=== PATIENT | male | born 1975 | race Caucasian/White ===

== ENCOUNTER 2016-09-07 15:38 | Emergency (ER) | payer MEDICAID ==
--- NOTE | 2016-09-07 16:33 | EDM.PDOC ---
ED HPI GENERAL MEDICAL PROBLEM - General Chief Complaint: Upper Extremity Injury/Pain Stated Complaint: LEFT SHOULDER PAIN Time Seen by Provider: 09/07/16 16:10 Source of Information: Reports: Patient History Limitations: Reports: No Limitations - History of Present Illness INITIAL COMMENTS - FREE TEXT/NARRATIVE: The patient presents with left shoulder pain. He was working on his van and he reinjured his shoulder. He has a known tear in his shoulder and is scheduled to see an orthopedic surgeon next week. He has no numbness in his arm. He had an MRI recently that shows the tear. Duration: Minutes: Location: Reports: Upper Extremity, Left (Shoulder) Quality: Reports: Sharp Severity: Severe Improves with: Reports: None Worsens with: Reports: Movement Context: Reports: Activity (Working on his van) Associated Symptoms: Reports: No Other Symptoms Treatments MAINTENANCE CHIEF: Reports: Other (see below) Other Treatments MAINTENANCE CHIEF: tylenol Left Shoulder Pain Score (Numeric/FACES): 10 - Related Data Allergies Allergy/AdvReac Type Severity Reaction Status Date / Time amoxicillin Allergy Anaphylactic Verified 09/07/16 16:13 Shock aspirin Allergy Anaphylactic Verified 09/07/16 16:12 Shock ibuprofen [From Motrin] Allergy Hives Verified 09/07/16 16:12 ketorolac [From Toradol] Allergy Anaphylactic Verified 09/07/16 16:14 Shock naproxen [From Naprosyn] Allergy Anaphylactic Verified 09/07/16 16:12 Shock Sulfa (Sulfonamide Allergy Anaphylactic Verified 09/07/16 16:13 Antibiotics) Shock tramadol Allergy Hives Verified 09/07/16 16:14 Home Meds: Home Meds Gabapentin [Neurontin] 1,200 mg PO BID 09/07/16 [History] oxyCODONE HCl/Acetaminophen [Percocet 5-325 mg Tablet] 1 - 2 each PO Q6HR PRN # 20 tablet 09/07/16 [Rx] Past Medical History Respiratory History: Reports: Other (See Below) Other Respiratory History: seasonal allergies Musculoskeletal History: Reports: Other (See Below) Other Musculoskeletal History: has rotator cuff injury. Social & Family History - Tobacco Use Smoking Status *Q: Current Every Day Smoker Years of Tobacco use: 2 Packs/Tins Daily: 1 - Caffeine Use Caffeine Use: Reports: Soda - Recreational Drug Use Recreational Drug Use: No Review of Systems - Review of Systems Review Of Systems: See Below Constitutional: Reports: No Symptoms Eyes: Reports: No Symptoms Ears: Reports: No Symptoms Nose: Reports: No Symptoms Mouth/Throat: Reports: No Symptoms Respiratory: Reports: No Symptoms Cardiovascular: Reports: No Symptoms GI/Abdominal: Reports: No Symptoms Genitourinary: Reports: No Symptoms Musculoskeletal: Reports: Other (Left shoulder pain) ED EXAM, GENERAL - Physical Exam Exam: See Below Exam Limited By: No Limitations General Appearance: Alert, No Apparent Distress Ears: Normal External Exam Nose: Normal Inspection Head: Atraumatic, Normocephalic Neck: Normal Inspection Respiratory/Chest: No Respiratory Distress Extremities: Other (Pain upon palpation to the left anterior shoulder. Good sensation and pulses distally. Motion limited due to pain.) Course - Vital Signs Last Recorded V/S: Last Vital Signs Temp 98.5 F 09/07/16 16:20 Pulse 79 09/07/16 16:20 Resp 20 09/07/16 16:20 BP 115/79 09/07/16 16:20 Pulse Ox 97 09/07/16 16:20 Departure - Departure Time of Disposition: 16:35 Disposition: Home, Self-Care 01 Condition: Good Clinical Impression: Traumatic partial tear of left biceps tendon Qualifiers: Encounter type: initial encounter Qualified Code(s): S46.212A - Strain of muscle, fascia and tendon of other parts of biceps, left arm, initial encounter Tear of left glenoid labrum Qualifiers: Encounter type: initial encounter Qualified Code(s): S43.432A - Superior glenoid labrum lesion of left shoulder, initial encounter - Discharge Information Prescriptions: oxyCODONE HCl/Acetaminophen [Percocet 5-325 mg Tablet] 1 - 2 each PO Q6HR PRN # 20 tablet PRN Reason: Pain Referrals: Jasmeet Posada MD [Physician] - 1 Week Forms: ED Department Discharge Additional Instructions: Take the percocet as needed for pain. Ice your shoulder for 15 minutes every other hour while awake for 2 days. Please return if you are worse. Follow up with Dr Posada as scheduled.
== END 2016-09-07 16:47 | disposition home or self-care (01) ==
LOC: JD.ED 15:38
CPT/HCPCS: 99283

== ENCOUNTER 2016-09-30 15:23 | Emergency (ER) | payer MEDICAID ==
[2016-09-30 15:46] VITALS: BP 127/83
--- NOTE | 2016-09-30 16:25 | EDM.PDOC ---
ED HPI GENERAL MEDICAL PROBLEM - General Chief Complaint: Back Pain or Injury Stated Complaint: BACK INJURY Time Seen by Provider: 09/30/16 16:00 Source of Information: Reports: Patient History Limitations: Reports: No Limitations - History of Present Illness INITIAL COMMENTS - FREE TEXT/NARRATIVE: The patient presents with left shoulder pain and low back pain. He was helping lift a couch and bed on a truck at the [facility]. He has shoulder problems. He is seeing a orthopedic surgeon for his shoulder. He has no numbness or weakness. Onset: Sudden Duration: Hour(s): Location: Reports: Back, Upper Extremity, Left (Shoulder) Quality: Reports: Sharp Severity: Moderate Improves with: Reports: None Worsens with: Reports: None Associated Symptoms: Reports: No Other Symptoms Left Shoulder Pain Score (Numeric/FACES): 10 - Related Data Allergies Allergy/AdvReac Type Severity Reaction Status Date / Time amoxicillin Allergy Anaphylactic Verified 09/30/16 15:46 Shock aspirin Allergy Anaphylactic Verified 09/30/16 15:46 Shock ibuprofen [From Motrin] Allergy Hives Verified 09/30/16 15:46 ketorolac [From Toradol] Allergy Anaphylactic Verified 09/30/16 15:46 Shock naproxen [From Naprosyn] Allergy Anaphylactic Verified 09/30/16 15:46 Shock Sulfa (Sulfonamide Allergy Anaphylactic Verified 09/30/16 15:46 Antibiotics) Shock tramadol Allergy Hives Verified 09/30/16 15:46 Home Meds: Home Meds oxyCODONE HCl/Acetaminophen [Percocet 5-325 mg Tablet] 1 - 2 each PO Q6HR PRN # 20 tablet 09/30/16 [Rx] Past Medical History Respiratory History: Reports: Other (See Below) Other Respiratory History: seasonal allergies. respiratory arrest after amoxicillin Musculoskeletal History: Reports: Other (See Below) Other Musculoskeletal History: has rotator cuff injury. Social & Family History - Tobacco Use Smoking Status *Q: Current Every Day Smoker Years of Tobacco use: 20 Packs/Tins Daily: 1 - Caffeine Use Caffeine Use: Reports: Soda - Recreational Drug Use Recreational Drug Use: No ED ROS GENERAL - Review of Systems Review Of Systems: See Below Constitutional: Reports: No Symptoms HEENT: Reports: No Symptoms Respiratory: Reports: No Symptoms Cardiovascular: Reports: No Symptoms Endocrine: Reports: No Symptoms GI/Abdominal: Reports: No Symptoms : Reports: No Symptoms Musculoskeletal: Reports: Shoulder Pain (Left), Back Pain ED EXAM,LOWER BACK PAIN/INJURY - Physical Exam Exam: See Below Exam Limited By: No Limitations General Appearance: Alert, No Apparent Distress Ears: Normal External Exam Nose: Normal Inspection Head: Atraumatic, Normocephalic Neck: Normal Inspection Respiratory/Chest: No Respiratory Distress, Lungs Clear, Normal Breath Sounds Cardiovascular: Regular Rate, Rhythm, No Edema, No Murmur GI/Abdominal: Soft, Non-Tender, No Organomegaly, No Mass Back Exam: Other (Pain upon palpation to the lumbar spine) Extremities: Other (Pain upon palpation to the left shoulder) Course - Vital Signs Last Recorded V/S: Last Vital Signs Temp 98.5 F 09/30/16 15:42 Pulse 84 09/30/16 15:42 Resp 16 09/30/16 15:42 BP 127/83 09/30/16 15:42 Pulse Ox 96 09/30/16 15:42 Departure - Departure Time of Disposition: 16:25 Disposition: Home, Self-Care 01 Condition: Good Clinical Impression: Shoulder pain, left Qualifiers: Chronicity: acute Qualified Code(s): M25.512 - Pain in left shoulder Low back pain Qualifiers: Chronicity: acute Back pain laterality: left Sciatica presence: without sciatica Qualified Code(s): M54.5 - Low back pain - Discharge Information Prescriptions: oxyCODONE HCl/Acetaminophen [Percocet 5-325 mg Tablet] 1 - 2 each PO Q6HR PRN # 20 tablet PRN Reason: Pain Referrals: Samantha Sewell PA-C [[facility]] - 1 Week Forms: ED Department Discharge Additional Instructions: Take the percocet for pain. Please return if you are worse.
== END 2016-09-30 16:48 | disposition home or self-care (01) ==
LOC: JD.ED 15:23
DX: M25.512 Pain in left shoulder (principal); M54.5 Low back pain; F17.210 Nicotine dependence, cigarettes, uncomplicated; Z88.1 Allergy status to other antibiotic agents; Z88.2 Allergy status to sulfonamides; Z88.5 Allergy status to narcotic agent; Z88.6 Allergy status to analgesic agent; Z88.8 Allergy status to other drugs, medicaments and biological substances; X50.0XXA Overexertion from strenuous movement or load, initial encounter
CPT/HCPCS: 99283

== ENCOUNTER 2016-10-16 12:21 | Emergency (ER) | payer MEDICAID ==
[2016-10-16 12:44] VITALS: BP 133/92
--- NOTE | 2016-10-16 16:05 | EDM.PDOC ---
ED HPI GENERAL MEDICAL PROBLEM - General Chief Complaint: Back Pain or Injury Stated Complaint: BACK INJURY Time Seen by Provider: 10/16/16 12:50 Source of Information: Reports: Patient, Old Records History Limitations: Reports: No Limitations - History of Present Illness INITIAL COMMENTS - FREE TEXT/NARRATIVE: 41-year-old male presents for evaluation and treatment of mid back pain. Patient reports that he was working on an engine around 0100 this morning. He states that the engine was on a shelbie. He states that the shelbie slipped in the engine slipped. States he had to catch the motor. This reports this caused significant back pain. Reports that he did not fall or have any direct blows to his back. He states that he also "tweaked his shoulder " and he had a twisting motion his back causing back pain. He states that he tried Tylenol and a muscle relaxer. He is on Soma. He also has been taking his gabapentin which he is on for chronic knee pain. States that he tried to sleep but he was unable to do so. Patient has a left labral tear and biceps tendon tear to the left shoulder. He reports he has been seeing Dr. Posada for this. He may need a surgery but does not have insurance. Middle Back Pain Score (Numeric/FACES): 10 - Related Data Allergies Allergy/AdvReac Type Severity Reaction Status Date / Time amoxicillin Allergy Anaphylactic Verified 10/16/16 12:45 Shock aspirin Allergy Anaphylactic Verified 10/16/16 12:45 Shock ibuprofen [From Motrin] Allergy Hives Verified 10/16/16 12:45 ketorolac [From Toradol] Allergy Anaphylactic Verified 10/16/16 12:45 Shock naproxen [From Naprosyn] Allergy Anaphylactic Verified 10/16/16 12:45 Shock Sulfa (Sulfonamide Allergy Anaphylactic Verified 10/16/16 12:45 Antibiotics) Shock tramadol Allergy Hives Verified 10/16/16 12:45 Home Meds: Home Meds Acetaminophen [Tylenol] 1 - 2 tab PO ASDIRECTED PRN 10/16/16 [History] Gabapentin [Neurontin] 1,200 mg PO TID 10/16/16 [History] Omeprazole 1 tab PO DAILY 10/16/16 [History] Past Medical History Respiratory History: Reports: Other (See Below) Other Respiratory History: seasonal allergies. respiratory arrest after amoxicillin Musculoskeletal History: Reports: Other (See Below) Other Musculoskeletal History: has rotator cuff injury. Social & Family History - Tobacco Use Smoking Status *Q: Current Every Day Smoker Years of Tobacco use: 8 Packs/Tins Daily: 1 - Caffeine Use Caffeine Use: Reports: Soda - Recreational Drug Use Recreational Drug Use: No ED ROS GENERAL - Review of Systems Review Of Systems: See Below Musculoskeletal: Reports: Arm Pain (left shoulder), Back Pain. Denies: Neck Pain Skin: Denies: Pruritis, Wound Neurological: Reports: Difficulty Walking. Denies: Numbness, Tingling ED EXAM,LOWER BACK PAIN/INJURY - Physical Exam Exam: See Below Exam Limited By: No Limitations General Appearance: Alert, WD/WN, No Apparent Distress, Other (amanda is cruled up in the position with his back towards me during my history) Ears: Normal External Exam Nose: Normal Inspection Throat/Mouth: Normal Inspection, Normal Lips, Normal Voice, No Airway Compromise Respiratory/Chest: No Respiratory Distress, Lungs Clear, Normal Breath Sounds Cardiovascular: Normal Peripheral Pulses, Regular Rate, Rhythm, No Murmur Back Exam: Normal Inspection, Paraspinal Tenderness (bilteral T5-L1; exaggerated reponse to palpation), Vertebral Tenderness (T5-L1; exaggerated reponse to palpation), Other (refuses to stand up stright due to pain but allows me to lower the bed flat during examination; able to forward flex to 90 degrees, unable to extend, able to rotate both directions but reports pain, able to laterally flex in both directs but reports pain). No: Muscle Spasm Extremities: Normal Inspection Neurological: Alert, Normal Mood/Affect, Normal Dorsiflexion, Normal Plantar Flexion, Normal Gait (appreciated later while walking around the ER; during examination refused to straighten). No: Straight Leg Raise (L), Straight Leg Raise (R) Psychiatric: Normal Affect, Normal Mood Skin Exam: Warm, Dry, Normal Color Course - Vital Signs Last Recorded V/S: Last Vital Signs Temp 36.1 C 10/16/16 12:39 Pulse 80 10/16/16 12:39 Resp 16 10/16/16 12:39 BP 133/92 H 10/16/16 12:39 Pulse Ox 97 10/16/16 12:39 - Re-Assessments/Exams Free Text/Narrative Re-Assessment/Exam: 08/30/17 13:15 The patient's physical exam is inconsistent with his reported injury. He reports significant pain to gentle touch of his back and shoulder. I feel he is exaggerating his symptoms. No muscle spasms, bruising, swelling or wounds appreciated on exam. Patient searched on the [place] prescription drug registry. Patient has received 11 prescriptions for controlled substances since August 22, 2016. These were from 7 different prescribers. When I interviewed the patient , I asked who was prescribed gabapentin and Soma he is reportedly on. Reports that these are from providers in [place]. Of note the patient lived in [place], [place]. He does not see practitioners in [place] because they "don't know what they're doing ". I augmented the searched including these 2 states. Within the last year he has received 28 prescriptions from 14 different prescribers for controlled substances. I am very suspicious for drug seeking behavior. 10/16/16 14:18 After I examined the patient I informed him I would review his MRI results come up with the treatment plan. Unfortunately, due to the ER being busy at the time I was unable to go back to the room right away. He eloped around 1350 without signing AMA paperwork. 10/16/16 14:45 Clinic called. They stated that the patient's was over the clinic today asking for gabapentin and tramadol. The patient was with her. This was prior to arrival in the ER. Of note they did observe the patient walking without difficulty and was in no obvious discomfort at that time. Departure - Departure Time of Disposition: 14:20 Disposition: Eloped 07 Condition: Fair Clinical Impression: Drug-seeking behavior Low back pain Qualifiers: Chronicity: acute Back pain laterality: left Sciatica presence: without sciatica Qualified Code(s): M54.5 - Low back pain Shoulder pain, left Qualifiers: Chronicity: acute Qualified Code(s): M25.512 - Pain in left shoulder - Discharge Information Referrals: PCP,None [Primary Care Provider] - Jasmeet Posada MD [Physician] - Gilbert Cunningham MD [Physician] - Forms: ED Department Discharge Additional Instructions: Patient eloped prior to discharge instructions.
== END 2016-10-16 13:47 | disposition left against medical advice (07) ==
LOC: JD.ED 12:21
DX: M54.5 Low back pain (principal); M25.512 Pain in left shoulder; Z76.5 Malingerer [conscious simulation]; Z88.1 Allergy status to other antibiotic agents; Z88.6 Allergy status to analgesic agent; Z88.2 Allergy status to sulfonamides; Z88.8 Allergy status to other drugs, medicaments and biological substances; Z88.5 Allergy status to narcotic agent; Z79.899 Other long term (current) drug therapy
CPT/HCPCS: 99283

== ENCOUNTER 2016-11-18 07:52 | Emergency (ER) | payer BC, MEDICAID ==
[2016-11-18 08:03] VITALS: BP 120/83
[2016-11-18] MEDS ORDERED: Acetaminophen/oxyCODONE 325-5 MG Tab PO ONE (08:22)
--- NOTE | 2016-11-18 08:25 | EDM.PDOC ---
ED HPI GENERAL MEDICAL PROBLEM - General Chief Complaint: Upper Extremity Injury/Pain Stated Complaint: SHOULDER PAIN Time Seen by Provider: 11/18/16 08:10 Source of Information: Reports: Patient, RN Notes Reviewed - History of Present Illness INITIAL COMMENTS - FREE TEXT/NARRATIVE: 5-year-old male comes in with bilateral elbow pain, upper mid back pain. He states he has been working on the [employer] for the past 14 days, 12 hour shifts. Become more sore over the last few days.'s night he started having mid back pain that continues this morning. Very difficult to sleep secondary to the pain. He has had difficulty with his back in the past and also has had difficulty with his elbows, what he describes as tennis elbow type problems in the past. No particular fall. Chest pain or difficulty breathing. Upper Back Pain Score (Numeric/FACES): 8 - Related Data Allergies Allergy/AdvReac Type Severity Reaction Status Date / Time amoxicillin Allergy Anaphylactic Verified 11/18/16 08:00 Shock aspirin Allergy Anaphylactic Verified 11/18/16 08:00 Shock ibuprofen [From Motrin] Allergy Hives Verified 11/18/16 08:00 ketorolac [From Toradol] Allergy Anaphylactic Verified 11/18/16 08:00 Shock naproxen [From Naprosyn] Allergy Anaphylactic Verified 11/18/16 08:00 Shock Sulfa (Sulfonamide Allergy Anaphylactic Verified 11/18/16 08:00 Antibiotics) Shock tramadol Allergy Hives Verified 11/18/16 08:00 Home Meds: Home Meds Gabapentin [Neurontin] 1,200 mg PO TID 10/16/16 [History] Acetaminophen/oxyCODONE [Percocet 325-5 MG] 1 tab PO Q6H PRN #14 tablet [Rx] Past Medical History - Past Health History Medical/Surgical History: Denies Medical/Surgical History Respiratory History: Reports: Other (See Below) Other Respiratory History: seasonal allergies. respiratory arrest after amoxicillin Musculoskeletal History: Reports: Other (See Below) Other Musculoskeletal History: has rotator cuff injury. Social & Family History - Tobacco Use Smoking Status *Q: Current Every Day Smoker Years of Tobacco use: 20 Packs/Tins Daily: 1 - Caffeine Use Caffeine Use: Reports: Soda - Recreational Drug Use Recreational Drug Use: No Review of Systems - Review of Systems Review Of Systems: See Below Constitutional: Reports: No Symptoms Mouth/Throat: Reports: No Symptoms Respiratory: Denies: Shortness of Breath, Pleuritic Chest Pain Cardiovascular: Denies: Chest Pain GI/Abdominal: Denies: Abdominal Pain, Nausea, Vomiting Musculoskeletal: Reports: Back Pain (upper mid back without radiation), Joint Pain (bilateral elbow, worse with motion) Skin: Reports: No Symptoms ED EXAM, GENERAL - Physical Exam Exam: See Below General Appearance: Alert, Moderate Distress Throat/Mouth: Normal Inspection Head: Atraumatic. No: Facial Swelling Neck: Supple Respiratory/Chest: No Respiratory Distress, Lungs Clear, Normal Breath Sounds Cardiovascular: Regular Rate, Rhythm GI/Abdominal: Non-Tender Back Exam: Paraspinal Tenderness (upper mid back), Other (no bruising or swelling visible no warmth or erythema) Extremities: Other (he is tenderness of both elbows especially over the lateral aspect, no joint swelling warmth or erythema, decent range of motion with some discomfort). No: Joint Swelling Neurological: Alert, Oriented, No Motor/Sensory Deficits Skin Exam: Warm, Dry, Normal Color Course - Vital Signs Last Recorded V/S: Last Vital Signs Temp 98.2 F 11/18/16 08:00 Pulse 89 11/18/16 08:00 Resp 18 11/18/16 08:00 BP 120/83 11/18/16 08:00 Pulse Ox 96 11/18/16 08:00 - Orders/Labs/Meds Meds: Medications Discontinued Medications Generic Name Dose Route Start Last Admin Trade Name Cristopher PRN Reason Stop Dose Admin Oxycodone/Acetaminophen 1 tab 11/18/16 08:22 11/18/16 08:31 Percocet 325-5 Mg PO 11/18/16 08:23 1 tab ONETIME ONE Administration - Re-Assessments/Exams Free Text/Narrative Re-Assessment/Exam: 11/18/16 08:30 patient states he has prednisone so therefore he will use what he has 40 mg every morning for 3 days, then 20 mg every morning for 2 days, discharge instructions as documented Departure - Departure Time of Disposition: 08:22 Disposition: Home, Self-Care 01 Condition: Fair Clinical Impression: Elbow pain, left, Elbow pain, right Back pain Qualifiers: Back pain location: thoracic back pain Chronicity: acute Back pain laterality: midline Qualified Code(s): M54.6 - Pain in thoracic spine - Discharge Information Prescriptions: Acetaminophen/oxyCODONE [Percocet 325-5 MG] 1 tab PO Q6H PRN #14 tablet PRN Reason: Pain Instructions: Back Pain, Adult Referrals: PCP,Not In Area [Primary Care Provider] - Forms: ED Department Discharge Additional Instructions: rest back and arms, no heavy lifting, and his own 40 mg every morning for 3 days , then 20 mg every morning for 2 days, Percocet every 6-8 hours if needed for severe pain, when the pain becomes less severe cut them in half and take one half tablet along with a 500 mg Tylenol, do not drive or work when taking Percocet, follow-up with your regular medical provider if not much better within 3-5 days as expected, return to ED as needed.
== END 2016-11-18 09:06 | disposition home or self-care (01) ==
LOC: JD.ED 07:52
DX: M25.521 Pain in right elbow (principal); M25.522 Pain in left elbow; M54.6 Pain in thoracic spine; F17.210 Nicotine dependence, cigarettes, uncomplicated; Z88.1 Allergy status to other antibiotic agents; Z88.6 Allergy status to analgesic agent; Z88.5 Allergy status to narcotic agent; Z88.2 Allergy status to sulfonamides
CPT/HCPCS: 99283; A9270

== ENCOUNTER 2016-11-24 12:40 | Emergency (ER) | payer MEDICAID ==
[2016-11-24 12:57] VITALS: BP 136/95
[2016-11-24] MEDS ORDERED: Acetaminophen 325 MG Tab PO ONE (13:26)
--- NOTE | 2016-11-24 13:36 | EDM.PDOC ---
ED HPI GENERAL MEDICAL PROBLEM - General Chief Complaint: Back Pain or Injury Stated Complaint: BACK PAIN Time Seen by Provider: 11/24/16 13:26 Source of Information: Reports: Patient History Limitations: Reports: No Limitations - History of Present Illness INITIAL COMMENTS - FREE TEXT/NARRATIVE: 41-year-old male presents for evaluation and treatment of lower back pain. Patient reports about one hour prior to arrival in the ER he was working underneath a car. He states that a friend knocked the car causing to fall off the shelbie. He states he rolled out from underneath the car. Reports that the car did not fall on him. He was able to get out before the car came off the shelbie. He is currently complaining of lower back pain. Reports radiation into the right leg. Reports he twisted his back as he rolled out from underneath the car. He reports "a little bit "of numbness and tingling into the right leg and knee. No saddle anesthesia, urinary incontinence or stool incontinence. Patient reports that when he was 10 years old he injured his right knee. Does not sound like he broke the knee but reports pain with the knee since the injury. Review of the patient's record show he was been seen in the ER on several different occasions for back pain. I asked if he has chronic back problems. He reports that he does not. He states that he has had x-rays of his back but never any imaging such as MRI. No primary care provider. Location: Reports: Back Treatments WATCH ENGINEER: Reports: Acetaminophen Lower Back Pain Score (Numeric/FACES): 10 - Related Data Allergies Allergy/AdvReac Type Severity Reaction Status Date / Time amoxicillin Allergy Anaphylactic Verified 11/24/16 12:53 Shock aspirin Allergy Anaphylactic Verified 11/24/16 12:53 Shock ibuprofen [From Motrin] Allergy Hives Verified 11/24/16 12:53 ketorolac [From Toradol] Allergy Anaphylactic Verified 11/24/16 12:53 Shock naproxen [From Naprosyn] Allergy Anaphylactic Verified 11/24/16 12:53 Shock Sulfa (Sulfonamide Allergy Anaphylactic Verified 11/24/16 12:53 Antibiotics) Shock tramadol Allergy Hives Verified 11/24/16 12:53 Home Meds: Home Meds Gabapentin [Neurontin] 1,200 mg PO TID 10/16/16 [History] Acetaminophen/oxyCODONE [Percocet 325-5 MG] 1 tab PO Q6H PRN #14 tablet [Rx] Past Medical History - Past Health History Medical/Surgical History: Denies Medical/Surgical History Respiratory History: Reports: Other (See Below) Other Respiratory History: seasonal allergies. respiratory arrest after amoxicillin Musculoskeletal History: Reports: Other (See Below) Other Musculoskeletal History: has rotator cuff injury. Social & Family History - Tobacco Use Smoking Status *Q: Current Every Day Smoker Years of Tobacco use: 20 Packs/Tins Daily: 1 - Caffeine Use Caffeine Use: Reports: Soda - Recreational Drug Use Recreational Drug Use: No ED ROS GENERAL - Review of Systems Review Of Systems: See Below GI/Abdominal: Denies: Stool Incontinence : Denies: Incontinence Musculoskeletal: Reports: Back Pain (low back right > left). Denies: Neck Pain Skin: Denies: Bruising, Wound Neurological: Reports: Numbness ("little bit" ) ED EXAM,LOWER BACK PAIN/INJURY - Physical Exam Exam: See Below Exam Limited By: No Limitations General Appearance: Alert, WD/WN, No Apparent Distress Respiratory/Chest: No Respiratory Distress, Lungs Clear, Normal Breath Sounds Cardiovascular: Normal Peripheral Pulses, Regular Rate, Rhythm, No Murmur GI/Abdominal: No Distention Back Exam: Normal Inspection, Paraspinal Tenderness, Vertebral Tenderness ( lumbar spine; exhibits severe pain to light palpation of the lumbar spine and paraspinal muscles) Extremities: Normal Inspection, Other (reports pain to the right lower back with straight leg raise to the right; none to the left) Neurological: Alert, Normal Dorsiflexion, Normal Plantar Flexion, Normal Gait Psychiatric: Normal Affect, Normal Mood Skin Exam: Warm, Dry, Normal Color. No: Ecchymosis, Erythema Course - Vital Signs Last Recorded V/S: Last Vital Signs Temp 36.2 C 11/24/16 12:53 Pulse 95 11/24/16 12:53 Resp BP 136/95 H 11/24/16 12:53 Pulse Ox 99 11/24/16 12:53 - Orders/Labs/Meds Orders: Active Orders 24 hr Category Date Time Status Lumbar Spine 2 or 3V [CR] Stat Exams 11/24/16 13:26 Ordered Meds: Medications Discontinued Medications Generic Name Dose Route Start Last Admin Trade Name Freq PRN Reason Stop Dose Admin Acetaminophen 975 mg 11/24/16 13:26 Tylenol PO 11/24/16 13:27 NOW ONE - Re-Assessments/Exams Free Text/Narrative Re-Assessment/Exam: 11/24/16 13:26 Patient exhibits significant pain to light palpation of his lumbar spine and paraspinal muscles. Given his mechanism of injury do not feel he has a veterbral fracture but given his exam with a significant amount of pain I cannot rule this out. I encouraged him to have an x-ray. He does not feel like he broke his back. I also informed him that given his mechanism of injury; it is unlikely that he has any vertebral fractures but based on his exam I cannot rule this out. Patient asked for medication for pain. The patient was searched on the narcotic prescription drug registry. This was augmented to include [place] and [place]. He has received 25 prescriptions for 15 different prescribers within the last year for controlled substances. Most recently received Percocet 5-325 on 11-18-16 # 14 and gabapentin 600 mg tabs #126 on 11/12/16. Patient has a documented history of drug-seeking behavior. I feel that he is exaggerating his symptoms, however, we will do an x- ray to rule out any vertebral fractures. I will give Tylenol for the pain. 11/24/16 13:42 Patient was upset with the order for 975 mg of Tylenol. He states these are taken a large amount Tylenol and his liver is "shot". Given his anaphylactic allergies to ibuprofen, Toradol and naproxen I'm unwilling to give him any narcotic pain medication at this time. The patient eloped without signing AMA paperwork prior to x-ray. I feel this the patient is likely drug seeking. His behavior in the ER today was strongly suggestive of drug seeking behavior. Departure - Departure Time of Disposition: 14:00 Disposition: Eloped 07 Condition: Undetermined Clinical Impression: Drug-seeking behavior Back pain Qualifiers: Back pain location: thoracic back pain Chronicity: acute Back pain laterality: midline Qualified Code(s): M54.6 - Pain in thoracic spine - Discharge Information Referrals: PCP,None [Primary Care Provider] - Forms: ED Department Discharge Additional Instructions: Behavior strongly suspicious for drug seeking behavior. - My Orders Last 24 Hours: My Active Orders 11/24/16 13:26 Lumbar Spine 2 or 3V [CR] Stat - Assessment/Plan Last 24 Hours: My Active Orders 11/24/16 13:26 Lumbar Spine 2 or 3V [CR] Stat
== END 2016-11-24 13:38 | disposition left against medical advice (07) ==
LOC: JD.ED 12:40
DX: M54.6 Pain in thoracic spine (principal); F17.210 Nicotine dependence, cigarettes, uncomplicated; Z88.1 Allergy status to other antibiotic agents; Z88.6 Allergy status to analgesic agent; Z88.5 Allergy status to narcotic agent; Z88.2 Allergy status to sulfonamides; Z76.5 Malingerer [conscious simulation]
CPT/HCPCS: 99283; A9270-GY

== ENCOUNTER 2016-12-06 14:00 | Emergency (ER) | payer BC, MEDICAID ==
[2016-12-06 14:06] VITALS: BP 125/82
--- NOTE | 2016-12-06 14:45 | EDM.PDOC ---
ED HPI GENERAL MEDICAL PROBLEM - General Chief Complaint: Upper Extremity Injury/Pain Stated Complaint: ELBOW PAIN Time Seen by Provider: 12/06/16 14:07 Source of Information: Reports: Patient, RN Notes Reviewed - History of Present Illness INITIAL COMMENTS - FREE TEXT/NARRATIVE: 41-year-old male comes in with left elbow pain. This started a few days ago. The pain is worse with motion, hand grasp and pronation does make the pain worse. He has had tennis elbow of the right elbow in the past and states this does feel similar. A lot of "shoveling a few days ago prior to onset of pain. He has been taking some Tylenol. He states anti-inflammatories give him "anaphylaxis". There has been no fall or blow to the forearm or elbow. Treatments VENEER STAPLER: Reports: Acetaminophen left elbow Pain Score (Numeric/FACES): 5 - Related Data Allergies Allergy/AdvReac Type Severity Reaction Status Date / Time amoxicillin Allergy Anaphylactic Verified 12/06/16 14:07 Shock aspirin Allergy Anaphylactic Verified 12/06/16 14:07 Shock ibuprofen [From Motrin] Allergy Hives Verified 12/06/16 14:07 ketorolac [From Toradol] Allergy Anaphylactic Verified 12/06/16 14:07 Shock naproxen [From Naprosyn] Allergy Anaphylactic Verified 12/06/16 14:07 Shock Sulfa (Sulfonamide Allergy Anaphylactic Verified 12/06/16 14:07 Antibiotics) Shock tramadol Allergy Hives Verified 12/06/16 14:07 Home Meds: Home Meds Gabapentin [Neurontin] 1,200 mg PO TID 10/16/16 [History] Acetaminophen/oxyCODONE [Percocet 325-5 MG] 1 tab PO Q6H PRN #14 tablet [Rx] Hydrocodone/Acetaminophen [[place] 5-325] 1 tab PO Q8HR PRN #10 tablet 12/06/16 [ Rx] Past Medical History - Past Health History Medical/Surgical History: Denies Medical/Surgical History Respiratory History: Reports: Other (See Below) Other Respiratory History: seasonal allergies. respiratory arrest after amoxicillin Musculoskeletal History: Reports: Back Pain, Chronic, Other (See Below) Other Musculoskeletal History: has rotator cuff injury. Social & Family History - Family History Family Medical History: Noncontributory - Tobacco Use Smoking Status *Q: Current Every Day Smoker Years of Tobacco use: 20 Packs/Tins Daily: 1 - Caffeine Use Caffeine Use: Reports: Coffee, Soda - Recreational Drug Use Recreational Drug Use: No Review of Systems - Review of Systems Review Of Systems: See Below Constitutional: Denies: Chills, Fever Mouth/Throat: Reports: No Symptoms Respiratory: Denies: Shortness of Breath Cardiovascular: Denies: Chest Pain GI/Abdominal: Denies: Nausea, Vomiting Musculoskeletal: Reports: Joint Pain (Right elbow) Skin: Reports: No Symptoms ED EXAM, GENERAL - Physical Exam Exam: See Below General Appearance: Alert, Mild Distress Head: Atraumatic Neck: Supple, Full Range of Motion Respiratory/Chest: No Respiratory Distress Extremities: Other (There is tenderness, point tenderness of the lateral epicondylar area of the right elbow, elbow otherwise nontender, forearm otherwise nontender). No: Joint Swelling, Redness Neurological: No Motor/Sensory Deficits Course - Vital Signs Last Recorded V/S: Last Vital Signs Temp 97.2 F 12/06/16 14:06 Pulse 84 12/06/16 14:06 Resp 18 12/06/16 14:06 BP 125/82 12/06/16 14:06 Pulse Ox 95 12/06/16 14:06 Departure - Departure Time of Disposition: 14:43 Disposition: Home, Self-Care 01 Condition: Fair Clinical Impression: Tennis elbow syndrome Qualifiers: Laterality: left Qualified Code(s): M77.12 - Lateral epicondylitis, left elbow - Discharge Information Prescriptions: Hydrocodone/Acetaminophen [[place] 5-325] 1 tab PO Q8HR PRN #10 tablet PRN Reason: Pain Instructions: Tennis Elbow, [id number] Referrals: PCP,None [Primary Care Provider] - Forms: ED Department Discharge Additional Instructions: elbow strap to help bind your forearm muscle to take pressure off of your elbow , rest elbow, alternate ice and heat as needed, tylenol for mild to moderate discomfort, hydrocodone if needed for severe pain, do not drive or operate equipment or machinery when taking hydrocodone. Follow up clinic as needed.
== END 2016-12-06 15:00 | disposition home or self-care (01) ==
LOC: JD.ED 14:00
DX: M77.12 Lateral epicondylitis, left elbow (principal); F17.210 Nicotine dependence, cigarettes, uncomplicated; Z88.1 Allergy status to other antibiotic agents; Z88.6 Allergy status to analgesic agent; Z88.5 Allergy status to narcotic agent; Z88.2 Allergy status to sulfonamides
CPT/HCPCS: 99283

== ENCOUNTER 2016-12-07 20:22 | Emergency (ER) | payer BC ==
[2016-12-07 20:36] VITALS: BP 126/82
[2016-12-07] MEDS ORDERED: Lidocaine 5% 700 MG Patch TOP ONE (20:57)
[2016-12-07] MEDS ORDERED: Acetaminophen 325 MG Tab PO ONE (20:57)
[2016-12-07] MEDS ORDERED: Ondansetron 4 MG Tab.DIS PO ONE (20:59)
--- NOTE | 2016-12-07 21:06 | EDM.PDOC ---
ED HPI GENERAL MEDICAL PROBLEM - General Chief Complaint: Back Pain or Injury Stated Complaint: BACK PAIN Time Seen by Provider: 12/07/16 20:45 Source of Information: Reports: Patient History Limitations: Reports: No Limitations - History of Present Illness INITIAL COMMENTS - FREE TEXT/NARRATIVE: 41-year-old male presents for evaluation treatment of low back pain. Patient reports that around 1630 today he was throwing hay bails. He states that from 3: 30 to 4:30 he was throwing hay bails, which weighed about 100 pounds. He states that he was twisting and throwing. He states that he picked up a wet hay bail which he estimated weighed about 250 pounds. He states that he felt a pop in his back and had to lay down immediately due to the pain. He is currently complaining of pain in the lower back. No numbness or tingling into the legs. No saddle anesthesia. No episodes of urinary or stool incontinence. He is reporting nausea due to the pain. States he has been taking Tylenol without any symptom relief prior to arrival in the ER. Treatments BOTTOM TURNER: Reports: Other (see below) Other Treatments BOTTOM TURNER: tylenol; hydrocodone not working Lower Back Pain Score (Numeric/FACES): 10 - Related Data Allergies Allergy/AdvReac Type Severity Reaction Status Date / Time amoxicillin Allergy Anaphylactic Verified 12/06/16 14:07 Shock aspirin Allergy Anaphylactic Verified 12/06/16 14:07 Shock ibuprofen [From Motrin] Allergy Hives Verified 12/06/16 14:07 ketorolac [From Toradol] Allergy Anaphylactic Verified 12/06/16 14:07 Shock naproxen [From Naprosyn] Allergy Anaphylactic Verified 12/06/16 14:07 Shock Sulfa (Sulfonamide Allergy Anaphylactic Verified 12/06/16 14:07 Antibiotics) Shock tramadol Allergy Hives Verified 12/06/16 14:07 Home Meds: Home Meds Gabapentin [Neurontin] 1,200 mg PO TID 10/16/16 [History] Acetaminophen/oxyCODONE [Percocet 325-5 MG] 1 tab PO Q6H PRN #14 tablet [Rx] Hydrocodone/Acetaminophen [[place] 5-325] 1 tab PO Q8HR PRN #10 tablet 12/06/16 [ Rx] Past Medical History - Past Health History Medical/Surgical History: Denies Medical/Surgical History Respiratory History: Reports: Other (See Below) Other Respiratory History: seasonal allergies. respiratory arrest after amoxicillin Musculoskeletal History: Reports: Back Pain, Chronic, Other (See Below) Other Musculoskeletal History: has rotator cuff injury. Social & Family History - Family History Family Medical History: Noncontributory - Tobacco Use Smoking Status *Q: Current Every Day Smoker Years of Tobacco use: 8 Packs/Tins Daily: 1.5 - Caffeine Use Caffeine Use: Reports: Coffee, Soda - Recreational Drug Use Recreational Drug Use: No ED ROS GENERAL - Review of Systems Review Of Systems: See Below GI/Abdominal: Reports: Nausea. Denies: Stool Incontinence, Vomiting : Denies: Incontinence Musculoskeletal: Reports: Back Pain (low back) Neurological: Reports: Difficulty Walking, Other (no saddle anesthesia). Denies : Numbness, Tingling ED EXAM,LOWER BACK PAIN/INJURY - Physical Exam Exam: See Below Exam Limited By: No Limitations General Appearance: Alert, WD/WN, No Apparent Distress Respiratory/Chest: No Respiratory Distress Back Exam: Normal Inspection, Vertebral Tenderness (reports severe tenderness to t8 to the sacrum with light palpation; I feel he is exaggerating his symptoms ), Other (patinet is laying on his stomach and refuses to lay on his back ) Neurological: Alert, Difficulty Walking (is walking hunched over holding his back) Skin Exam: Warm, Dry, Normal Color. No: Ecchymosis Course - Vital Signs Last Recorded V/S: Last Vital Signs Temp 37.1 C 12/07/16 20:31 Pulse 89 12/07/16 20:31 Resp 20 12/07/16 20:31 BP 126/82 12/07/16 20:31 Pulse Ox 95 12/07/16 20:31 - Orders/Labs/Meds Orders: Active Orders 24 hr Category Date Time Status Lumbar Spine 2 or 3V [CR] Stat Exams 12/07/16 20:55 Taken Thoracic Spine 2V [CR] Stat Exams 12/07/16 20:55 Taken Meds: Medications Discontinued Medications Generic Name Dose Route Start Last Admin Trade Name Freq PRN Reason Stop Dose Admin Acetaminophen 975 mg 12/07/16 20:57 12/07/16 21:10 Tylenol PO 12/07/16 20:58 Not Given NOW ONE Lidocaine 700 mg 12/07/16 20:57 12/07/16 21:10 Lidoderm 5% TOP 12/07/16 20:58 700 mg ONETIME ONE Administration Ondansetron HCl 4 mg 12/07/16 20:59 12/07/16 21:10 Zofran Odt PO 12/07/16 21:00 4 mg ONETIME ONE Administration Orphenadrine Citrate 100 mg 12/07/16 21:23 Norflex PO 12/07/16 21:24 NOW STA - Radiology Interpretation Free Text/Narrative:: lumbar spine xray shows no acute fractures of dislocations thoracic spine xray shows a fusion in the mid back from L1 to T6 - reports he had a fusion in [place] in 2003 and states the remainder of his back fused on its own. - Re-Assessments/Exams Free Text/Narrative Re-Assessment/Exam: 12/07/16 21:07 Patient was searched on the [place] prescription drug registry. He lives in [place] and recently relocated to [place] from [place]. The search was augmented to include these [facility] as well. He has received 35 prescriptions from 23 different prescribers within the last year for controlled substances. Most recently received hydrocodone 5-325#10 on 12-06-16. 12/07/16 21:31 Patient refuses tylenol. Has anaphylaxis reactions to NSAIDS. Requesting something more for pain. Norflex 100mg tab ordered for pain relief. 12/07/16 21:43 Patient refused the Norflex tab. He is demanding to speak with the doctor. Dr. Kang is aware. Patient has now eloped. He angrily stormed out of the ER saying that we are not treating his pain, however, he did refuse Tylenol and Norflex. He did not feel that the lidocaine patch adequately treated his pain. X-ray [employer] reported that he called her "stupid " For making him lay on his side. X-ray [employer] also inform me that he had told her he had a mid back fusion in 2003 in [place]. He failed to mention this to me. 12/07/16 22:04 Nursing staff went and found the patient. States that he was weak and almost fell. They brought him back in and had him lay down. I reviewed the x-ray results with the patient. I reviewed his drug registry with him and told him I will not be prescribing any more narcotics as he has gotten 4 narcotic prescriptions this month. He is requesting a shot for pain. I told him that what he has already received is what I would prescribe for him. I encouraged him to try the Tylenol and the Norflex first. He then tells me that he has been taking Tylenol and methylcarbinol at home. He also took 2 hydrocodone before he got here. I informed if he would like to see Dr. Kang I can have him come and see him, however, he is currently with another patient and it maybe a few minutes. logistics clerk came inform me that he has now eloped for the second time. Departure - Departure Time of Disposition: 22:20 Disposition: Eloped 07 Condition: Undetermined Clinical Impression: Drug-seeking behavior - Discharge Information Referrals: PCP,None [Primary Care Provider] - Forms: ED Department Discharge Additional Instructions: Plan was to prescribe norflex and have him use his narcotic pain medications he has at home. Plan was to set him up with PT and an outpatient MRI. Was also going to recommend heat to the back. Patient eloped prior to discharge. - My Orders Last 24 Hours: My Active Orders 12/07/16 20:55 Lumbar Spine 2 or 3V [CR] Stat Thoracic Spine 2V [CR] Stat - Assessment/Plan Last 24 Hours: My Active Orders 12/07/16 20:55 Lumbar Spine 2 or 3V [CR] Stat Thoracic Spine 2V [CR] Stat
[2016-12-07] MEDS ORDERED: Orphenadrine 100 MG Tab.ER PO STA (21:23)
--- NOTE | 2016-12-08 17:11 | CR ---
Lumbar spine: AP and lateral views of the lumbar spine were obtained. Comparison: No prior plain film exam, previous MRI lumbar spine exam of 12/09/12 is available. Disc space narrowing is noted at T11-T12 and T12-L1 with partial fusion seen anteriorly at T12-L1. These findings are felt to be developmental and are stable from prior MRI. Other disc spaces are maintained. Vertebral body heights are maintained. Pedicles as well as visualized transverse and spinous processes are intact. No subluxation or fracture is identified. Visualized bowel gas is normal. Sacroiliac joints appear within normal limits. Impression: 1. Findings felt to be developmental and appear stable from prior MRI at T11-T12 and T12-L1 as noted above. 2. Three-view lumbar spine study is otherwise unremarkable. Diagnostic code #2
--- NOTE | 2016-12-08 17:11 | CR ---
Thoracic spine: AP, lateral and swimmer's views of the thoracic spine were obtained. Comparison: No prior thoracic spine study. Anterior fusion is seen within multiple vertebral levels within the lower thoracic spine. Slight anterior wedging is noted of several lower thoracic vertebral bodies which appear chronic. Very minimal endplate osteophytes are seen within the mid thoracic spine. Pedicles appear intact. Mild scoliosis is noted. No abnormal subluxation is seen. Impression: 1. Anterior fusion within multiple lower thoracic vertebral levels with several chronic-appearing anterior wedge deformities. 2. Slight endplate spurring noted within the mid thoracic spine. 3. Minimal scoliosis. Diagnostic code #3
== END 2016-12-07 22:04 | disposition left against medical advice (07) ==
LOC: JD.ED 20:22
DX: M54.5 Low back pain (principal); Z76.5 Malingerer [conscious simulation]; F17.210 Nicotine dependence, cigarettes, uncomplicated; Z79.899 Other long term (current) drug therapy; Z88.5 Allergy status to narcotic agent; Z88.6 Allergy status to analgesic agent; Z88.2 Allergy status to sulfonamides; Z88.1 Allergy status to other antibiotic agents
CPT/HCPCS: 72070; 72100; 99284; A9270; 99283

== ENCOUNTER 2016-12-22 18:13 | Emergency (ER) | payer BC ==
[2016-12-22 18:32] VITALS: BP 140/91
--- NOTE | 2016-12-22 19:11 | EDM.PDOC ---
ED HPI GENERAL MEDICAL PROBLEM - General Chief Complaint: Back Pain or Injury Stated Complaint: LOWER BACK PAIN Time Seen by Provider: 12/22/16 19:05 Source of Information: Reports: Patient History Limitations: Reports: No Limitations - History of Present Illness INITIAL COMMENTS - FREE TEXT/NARRATIVE: 41-year-old male attends the ED because of increasing low back pain. Patient lives with chronic low back pain and mid back pain due to ankylosing spondylitis. The bones in his thoracic spine have diffuse spontaneously. 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 Pain is diffusely throughout his lower back. It radiates into the upper buttock and along the beltline but not much into the legs. He feels he is emptying his bladder adequately. He usually uses Percocet 7.5 mg/325 mg but does not have any pain medication. He has started himself on prednisone 20 mg twice a day yesterday. Is allergic to almost all NSAIDs. He has been tried on numerous anti- remittive agents without much relief. Just states he just needs help to get through the weekend and get some sleep. 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 (Something he can take it is not helping) Lower Back Pain Score (Numeric/FACES): 9 - Related Data Allergies Allergy/AdvReac Type Severity Reaction Status Date / Time amoxicillin Allergy Anaphylactic Verified 12/22/16 18:29 Shock aspirin Allergy Anaphylactic Verified 12/22/16 18:29 Shock ibuprofen [From Motrin] Allergy Hives Verified 12/22/16 18:29 ketorolac [From Toradol] Allergy Anaphylactic Verified 12/22/16 18:29 Shock naproxen [From Naprosyn] Allergy Anaphylactic Verified 12/22/16 18:29 Shock Sulfa (Sulfonamide Allergy Anaphylactic Verified 12/22/16 18:29 Antibiotics) Shock tramadol Allergy Hives Verified 12/22/16 18:29 Home Meds: Home Meds Gabapentin [Neurontin] 1,200 mg PO TID 10/16/16 [History] oxyCODONE HCl/Acetaminophen [Percocet 7.5-325 mg Tablet] 1 each PO Q4H PRN #20 tablet 12/22/16 [Rx] Past Medical History - Past Health History Medical/Surgical History: Denies Medical/Surgical History Respiratory History: Reports: Other (See Below) Other Respiratory History: seasonal allergies. respiratory arrest after amoxicillin Musculoskeletal History: Reports: Back Pain, Chronic, Other (See Below) Other Musculoskeletal History: has rotator cuff injury. Has ankylosing spondylitis. 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 - Past Surgical History Musculoskeletal Surgical History: Reports: Other (See Below) Other Musculoskeletal Surgeries/Procedures:: pt states that his mid back is fused Social & Family History - Family History Family Medical History: Noncontributory - Tobacco Use Smoking Status *Q: Current Every Day Smoker Years of Tobacco use: 5 Packs/Tins Daily: 2.5 Used Tobacco, but Quit: No - Caffeine Use Caffeine Use: Reports: Soda - Recreational Drug Use Recreational Drug Use: No - Living Situation & Occupation Living situation: Reports: Occupation: Employed ED ROS GENERAL - Review of Systems Review Of Systems: See Below Constitutional: Denies: Fever, Chills, Malaise, Weakness, Fatigue, Decreased Appetite, Weight Loss HEENT: Reports: No Symptoms Respiratory: Reports: No Symptoms Cardiovascular: Reports: No Symptoms Endocrine: Reports: No Symptoms GI/Abdominal: Reports: Constipation : Reports: No Symptoms (Occasional problems) Musculoskeletal: Reports: Back Pain Skin: Reports: No Symptoms (Chronic low back pain) Neurological: Reports: No Symptoms Psychiatric: Reports: No Symptoms Hematologic/Lymphatic: Reports: No Symptoms Immunologic: Reports: No Symptoms ED EXAM,LOWER BACK PAIN/INJURY - Physical Exam Exam: See Below Exam Limited By: No Limitations General Appearance: Alert, WD/WN, Moderate Distress (Appears to be quite uncomfortable.) Respiratory/Chest: No Respiratory Distress, Lungs Clear, Normal Breath Sounds, No Accessory Muscle Use, Chest Non-Tender Cardiovascular: Normal Peripheral Pulses, Regular Rate, Rhythm, No Edema, No Gallop, No Murmur, Tachycardia (Resting tachycardia at 10 8/m.) GI/Abdominal: Normal Bowel Sounds, Soft, Non-Tender, No Organomegaly, No Distention Back Exam: Muscle Spasm, Vertebral Tenderness (Minimal muscle spasm. Vertebral tenderness throughout all the facet joints from T11-L5 bilaterally. Worse in the right side particularly at the L1-L2 level.) Extremities: Normal Inspection, Normal Range of Motion, Non-Tender, No Pedal Edema, Normal Capillary Refill Neurological: Alert, Normal Mood/Affect, Normal Dorsiflexion, CN II-XII Intact, Normal Plantar Flexion, Normal Gait, Normal Reflexes, No Motor/Sensory Deficits , Oriented x 3 Course - Vital Signs Last Recorded V/S: Last Vital Signs Temp 37.1 C 12/22/16 18:30 Pulse 105 H 12/22/16 18:30 Resp 16 12/22/16 18:30 BP 140/91 H 12/22/16 18:30 Pulse Ox 98 12/22/16 18:30 - Orders/Labs/Meds Meds: Medications Discontinued Medications Generic Name Dose Route Start Last Admin Trade Name Freq PRN Reason Stop Dose Admin Oxycodone/Acetaminophen 2 tab 12/22/16 19:12 12/22/16 19:26 Percocet 325-5 Mg PO 12/22/16 19:13 2 tab ONETIME ONE Administration - Radiology Interpretation Free Text/Narrative:: 41-year-old male with chronic low back pain attends the ED primarily for pain management. Patient states she has ankylosing spondylitis and a bones in his mid back if spontaneously fused. Pain is been exacerbated by his work level over the last few days. States pain is constant throbbing and he has no pain medication at home. Usually uses 7.5 mg of Percocet 5/3/25 milligrams strength for pain relief but does not have any at this time. Started himself back on prednisone 20 mg twice a day yesterday. Examination shows point tenderness over the facet joints from T11-L5 bilaterally worse on the right as compared to the left. Plan given Percocet 5/3/25 milligrams tabs 2 through the ED. Prescription written for 20 tablets of Percocet 7.5/325 m for filling tomorrow. He will follow-up with his normal provider the next few days. Departure - Departure Time of Disposition: 19:12 Disposition: Home, Self-Care 01 Condition: Fair Clinical Impression: Ankylosing spondylitis of multiple sites in spine Low back pain Qualifiers: Chronicity: acute Back pain laterality: left Sciatica presence: without sciatica Qualified Code(s): M54.5 - Low back pain - Discharge Information Prescriptions: oxyCODONE HCl/Acetaminophen [Percocet 7.5-325 mg Tablet] 1 each PO Q4H PRN #20 tablet PRN Reason: back pain Instructions: Back Pain, Adult Referrals: PCP,None [Primary Care Provider] - Forms: ED Department Discharge Additional Instructions: Evaluation in the ER tonight in regards to acute exacerbation opf chronic low back pain. Chronic ankylosing spondylitis. Allergy to multiple NSAID`s. Currently on Prednisone 20mg bid. Use Percocet 5/325mg tabs x 2 tonight from the ED. Script written for Percocet 7.5/325mg tabs x20 for pain releif over the next few days until f0llow up with personal physcian. or pain managment physcian.
[2016-12-22] MEDS ORDERED: Acetaminophen/oxyCODONE 325-5 MG Tab PO ONE (19:12)
== END 2016-12-22 19:30 | disposition home or self-care (01) ==
LOC: JD.ED 18:13
DX: M45.0 Ankylosing spondylitis of multiple sites in spine (principal); F17.210 Nicotine dependence, cigarettes, uncomplicated; Z88.1 Allergy status to other antibiotic agents; Z88.6 Allergy status to analgesic agent; Z88.2 Allergy status to sulfonamides; Z88.5 Allergy status to narcotic agent; Z79.899 Other long term (current) drug therapy
CPT/HCPCS: 99283; A9270

== ENCOUNTER 2017-03-29 17:48 | Emergency (ER) | payer BC, MEDICAID ==
[2017-03-29 17:58] VITALS: BP 117/67
[2017-03-29] MEDS ORDERED: Acetaminophen/oxyCODONE 325-5 MG Tab PO ONE (18:32)
--- NOTE | 2017-03-29 19:11 | EDM.PDOC ---
ED HPI GENERAL MEDICAL PROBLEM - General Chief Complaint: Back Pain or Injury Stated Complaint: FELL ON TAILBONE AND BACK PAIN Time Seen by Provider: 03/29/17 18:10 Source of Information: Reports: Patient, RN Notes Reviewed - History of Present Illness INITIAL COMMENTS - FREE TEXT/NARRATIVE: 42-year-old male comes in with low back and tailbone discomfort. He states that he slept reading some furniture into his home a couple of hours ago landing on his tailbone. He states he does have severe pain of the tailbone and low back worse with any kind of motion. He does have some mild neck discomfort. He denies headache, LOC or severe head injury. The pain does not radiate down his legs. No chest pain or difficulty breathing. Back Pain Score (Numeric/FACES): 9 - Related Data Allergies Allergy/AdvReac Type Severity Reaction Status Date / Time amoxicillin Allergy Anaphylactic Verified 03/29/17 17:58 Shock aspirin Allergy Anaphylactic Verified 03/29/17 17:58 Shock ibuprofen [From Motrin] Allergy Hives Verified 03/29/17 17:58 ketorolac [From Toradol] Allergy Anaphylactic Verified 03/29/17 17:58 Shock naproxen [From Naprosyn] Allergy Anaphylactic Verified 03/29/17 17:58 Shock Sulfa (Sulfonamide Allergy Anaphylactic Verified 03/29/17 17:58 Antibiotics) Shock tramadol Allergy Hives Verified 03/29/17 17:58 Home Meds: Home Meds Gabapentin [Neurontin] 1,200 mg PO TID 10/16/16 [History] traMADol [Ultram] 50 mg PO Q6H PRN #14 tab 03/29/17 [Rx] Past Medical History - Past Health History Medical/Surgical History: Denies Medical/Surgical History Respiratory History: Reports: Other (See Below) Other Respiratory History: seasonal allergies. respiratory arrest after amoxicillin Musculoskeletal History: Reports: Back Pain, Chronic, Other (See Below) Other Musculoskeletal History: has rotator cuff injury. Has ankylosing spondylitis. 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 - Past Surgical History Musculoskeletal Surgical History: Reports: Other (See Below) Other Musculoskeletal Surgeries/Procedures:: pt states that his mid back is fused Social & Family History - Family History Family Medical History: Noncontributory - Tobacco Use Smoking Status *Q: Current Every Day Smoker Years of Tobacco use: 20 Packs/Tins Daily: 0.5 Used Tobacco, but Quit: No Second Hand Smoke Exposure: No - Caffeine Use Caffeine Use: Reports: Coffee - Recreational Drug Use Recreational Drug Use: No - Living Situation & Occupation Living situation: Reports: Occupation: Employed ED ROS GENERAL - Review of Systems Review Of Systems: See Below Constitutional: Reports: No Symptoms HEENT: Reports: No Symptoms Respiratory: Denies: Shortness of Breath, Pleuritic Chest Pain Cardiovascular: Denies: Chest Pain GI/Abdominal: Denies: Abdominal Pain, Nausea, Vomiting Musculoskeletal: Reports: Back Pain (Low back) Skin: Reports: No Symptoms Neurological: Denies: Dizziness, Headache, Numbness, Tingling ED EXAM,LOWER BACK PAIN/INJURY - Physical Exam Exam: See Below General Appearance: Alert, Moderate Distress Throat/Mouth: Normal Inspection Head: Atraumatic, Other (No visible scalp swelling or bruising). No: Facial Swelling Neck: Supple Respiratory/Chest: No Respiratory Distress, Lungs Clear Back Exam: Paraspinal Tenderness (Low mid back), Vertebral Tenderness (Low mid back), Other (No bruising or swelling visible, very tender over the tailbone area as well) Extremities: Normal Inspection, Normal Range of Motion, Other (Pelvis and hips nontender) Neurological: Alert, No Motor/Sensory Deficits Skin Exam: Warm, Dry, Normal Color Course - Vital Signs Last Recorded V/S: Last Vital Signs Temp 98.2 F 03/29/17 17:56 Pulse 87 03/29/17 17:56 Resp 18 03/29/17 17:56 BP 117/67 03/29/17 17:56 Pulse Ox 96 03/29/17 17:56 - Orders/Labs/Meds Orders: Active Orders 24 hr Category Date Time Status Lumbar Spine 2 or 3V [CR] Stat Exams 03/29/17 18:33 Taken Sacrum Coccyx Min 2V [CR] Stat Exams 03/29/17 18:33 Taken Meds: Medications Discontinued Medications Generic Name Dose Route Start Last Admin Trade Name Freq PRN Reason Stop Dose Admin Oxycodone/Acetaminophen 1 tab 03/29/17 18:32 03/29/17 18:40 Percocet 325-5 Mg PO 03/29/17 18:33 1 tab ONETIME ONE Administration - Re-Assessments/Exams Free Text/Narrative Re-Assessment/Exam: 03/29/17 19:28. Pt allergic to tramadol, NSAIDs per patient hx. I did check the [place] PDMP. He has had 23 prescriptions filled by 12 prescribers at 9 different pharmacies in the past year, worrisome. He has no fx. We did treat his pain with an oxycodone 5/325 after my exam. I have informed patient I am not comfortable prescribing any further narcotics for this injury. 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 He now tells me he is not allergic to tramadol, states tylenol is not giving him adequate relief from this injury. Will prescribe a limited # of tramado. Will provider a referal for Dr Cleary, pain management. Departure - Departure Time of Disposition: 19:45 Disposition: Home, Self-Care 01 Condition: Fair Clinical Impression: Contusion of coccyx Qualifiers: Encounter type: initial encounter Qualified Code(s): S30.0XXA - Contusion of lower back and pelvis, initial encounter Low back pain Qualifiers: Chronicity: acute Back pain laterality: left Sciatica presence: without sciatica Qualified Code(s): M54.5 - Low back pain - Discharge Information Prescriptions: traMADol [Ultram] 50 mg PO Q6H PRN #14 tab PRN Reason: Pain Referrals: PCP,None [Primary Care Provider] - Forms: ED Department Discharge Additional Instructions: tylenol 3 to 4 times daily, you may take tramadol in between doses for extra pain relief as needed. 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 - My Orders Last 24 Hours: My Active Orders 03/29/17 18:33 Lumbar Spine 2 or 3V [CR] Stat Sacrum Coccyx Min 2V [CR] Stat - Assessment/Plan Last 24 Hours: My Active Orders 03/29/17 18:33 Lumbar Spine 2 or 3V [CR] Stat Sacrum Coccyx Min 2V [CR] Stat
--- NOTE | 2017-03-30 12:24 | CR ---
Lumbar spine: AP and lateral views of the lumbar spine were obtained. Comparison: Prior lumbar spine study of 12/07/16. Evidence of anterior fusion is seen at T11-T12 and T12-L1. Disc spaces within the lumbar spine are preserved. Vertebral body heights are maintained. Minimal scattered endplate osteophytes are seen. Pedicles as well as transverse and spinous processes are intact. Sacroiliac joints are within normal limits. Impression: 1. Findings as noted above. No significant change from previous study is seen. Nothing acute is identified. Diagnostic code #2
--- NOTE | 2017-03-30 17:47 | CR ---
Sacrum and coccyx: Three views of the sacrum and coccyx were obtained. Comparison: No previous study. Sacroiliac joints are within normal limits. Sacral foramina appear to be patent. No discrete fracture or other bony abnormality is seen. Impression: 1. No abnormality is identified on three-view sacrum and coccyx study. Diagnostic code #1
== END 2017-03-29 20:10 | disposition home or self-care (01) ==
LOC: JD.ED 17:48
DX: S30.0XXA Contusion of lower back and pelvis, initial encounter (principal); F17.210 Nicotine dependence, cigarettes, uncomplicated; Z88.1 Allergy status to other antibiotic agents; Z88.6 Allergy status to analgesic agent; Z88.2 Allergy status to sulfonamides; Z88.5 Allergy status to narcotic agent; W17.89XA Other fall from one level to another, initial encounter; Y92.009 Unspecified place in unspecified non-institutional (private) residence as the place of occurrence of the external cause
CPT/HCPCS: 72100; 72220; 99283; A9270

== ENCOUNTER 2017-04-15 15:36 | Emergency (ER) | payer MEDICAID ==
--- NOTE | 2017-04-15 16:24 | EDM.PDOC ---
ED HPI GENERAL MEDICAL PROBLEM - General Chief Complaint: Upper Extremity Injury/Pain Stated Complaint: LEFT SHOULDER INJURY Time Seen by Provider: 04/15/17 15:51 Source of Information: Reports: Patient History Limitations: Reports: No Limitations - History of Present Illness INITIAL COMMENTS - FREE TEXT/NARRATIVE: The patient slipped on the ice running after his daughter and he fell and landed on his right shoulder. He has had trouble with the shoulder. He is worried he may have torn the rotator cuff. He denies any other injury. He has no headache and he did not hurt his neck. Onset: Sudden Duration: Hour(s): Location: Reports: Upper Extremity, Right (Shoulder) Quality: Reports: Sharp Severity: Severe Improves with: Reports: Immobilization Worsens with: Reports: Movement Context: Reports: Trauma (Fell while running after his daughter) Associated Symptoms: Reports: No Other Symptoms Right Shoulder Pain Score (Numeric/FACES): 10 - Related Data Allergies Allergy/AdvReac Type Severity Reaction Status Date / Time amoxicillin Allergy Anaphylactic Verified 04/15/17 15:54 Shock aspirin Allergy Anaphylactic Verified 04/15/17 15:54 Shock ibuprofen [From Motrin] Allergy Hives Verified 04/15/17 15:54 ketorolac [From Toradol] Allergy Anaphylactic Verified 04/15/17 15:54 Shock naproxen [From Naprosyn] Allergy Anaphylactic Verified 04/15/17 15:54 Shock Sulfa (Sulfonamide Allergy Anaphylactic Verified 04/15/17 15:54 Antibiotics) Shock tramadol Allergy Hives Verified 04/15/17 15:54 Home Meds: Home Meds Gabapentin [Neurontin] 1,200 mg PO TID 10/16/16 [History] Past Medical History - Past Health History Medical/Surgical History: Denies Medical/Surgical History Respiratory History: Reports: Other (See Below) Other Respiratory History: seasonal allergies. respiratory arrest after amoxicillin Musculoskeletal History: Reports: Back Pain, Chronic, Other (See Below) Other Musculoskeletal History: has rotator cuff injury. Has ankylosing spondylitis. 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 - Past Surgical History Musculoskeletal Surgical History: Reports: Other (See Below) Other Musculoskeletal Surgeries/Procedures:: pt states that his mid back is fused Social & Family History - Family History Family Medical History: Noncontributory - Tobacco Use Smoking Status *Q: Current Every Day Smoker Years of Tobacco use: 20 Packs/Tins Daily: 2 Used Tobacco, but Quit: No Second Hand Smoke Exposure: No - Caffeine Use Caffeine Use: Reports: Coffee - Recreational Drug Use Recreational Drug Use: No - Living Situation & Occupation Living situation: Reports: Occupation: Employed Review of Systems - Review of Systems Review Of Systems: See Below Constitutional: Reports: No Symptoms Eyes: Reports: No Symptoms Ears: Reports: No Symptoms Nose: Reports: No Symptoms Mouth/Throat: Reports: No Symptoms Respiratory: Reports: No Symptoms Cardiovascular: Reports: No Symptoms GI/Abdominal: Reports: No Symptoms Genitourinary: Reports: No Symptoms Musculoskeletal: Reports: Shoulder Pain (Right) ED EXAM, GENERAL - Physical Exam Exam: See Below Exam Limited By: No Limitations General Appearance: Alert, No Apparent Distress Ears: Normal External Exam Nose: Normal Inspection Head: Atraumatic, Normocephalic Neck: Normal Inspection, Supple, Non-Tender Respiratory/Chest: No Respiratory Distress, Lungs Clear, Normal Breath Sounds Cardiovascular: Regular Rate, Rhythm, No Edema, No Murmur GI/Abdominal: Soft, Non-Tender, No Organomegaly, No Mass Back Exam: Normal Inspection Extremities: Other (Pain upon palpation to the right shoulder. Good sensation and pulses distally.) Course - Vital Signs Last Recorded V/S: Last Vital Signs Temp 98.1 F 04/15/17 15:51 Pulse 90 04/15/17 15:51 Resp 18 04/15/17 15:51 BP 136/88 04/15/17 15:51 Pulse Ox 97 04/15/17 15:51 - Orders/Labs/Meds Orders: Active Orders 24 hr Category Date Time Status Inj Arthrogram Shoulder Rt [CR] Stat Exams 04/15/17 16:00 Stop Req Shoulder Comp Rt [CR] Stat Exams 04/15/17 16:06 Taken - Re-Assessments/Exams Free Text/Narrative Re-Assessment/Exam: 04/15/17 16:23 The x-ray looks good. I will discharge him home. He is seeing someone for his pain. 04/15/17 16:46 His x-ray looks good. I will discharge him home. Departure - Departure Time of Disposition: 16:50 Disposition: Home, Self-Care 01 Condition: Good Clinical Impression: Fall Qualifiers: Encounter type: initial encounter Qualified Code(s): W19.XXXA - Unspecified fall, initial encounter Left shoulder strain Qualifiers: Encounter type: initial encounter Qualified Code(s): S46.912A - Strain of unspecified muscle, fascia and tendon at shoulder and upper arm level, left arm , initial encounter - Discharge Information Referrals: PCP,None [Primary Care Provider] - Jasmeet Posada MD [Physician] - 1 Week Forms: ED Department Discharge Additional Instructions: Ice your shoulder for 15 minutes 3 times per day for 2 days. Take the pecocet as needed for pain. Follow up with Dr Posada. - My Orders Last 24 Hours: My Active Orders 04/15/17 16:00 Inj Arthrogram Shoulder Rt [CR] Stat 04/15/17 16:06 Shoulder Comp Rt [CR] Stat - Assessment/Plan Last 24 Hours: My Active Orders 04/15/17 16:00 Inj Arthrogram Shoulder Rt [CR] Stat 04/15/17 16:06 Shoulder Comp Rt [CR] Stat
[2017-04-15 19:05] VITALS: BP 120/91
--- NOTE | 2017-04-16 08:45 | CR ---
Right shoulder: Three views of the right shoulder were obtained. Comparison: Prior right shoulder exam of 03/24/11. Glenohumeral and acromioclavicular joints appear within normal limits. No fracture or other bony abnormality is identified. No abnormal soft tissue calcifications are seen. Impression: 1. No abnormality is identified on three-view right shoulder study. Diagnostic code #1
== END 2017-04-15 17:00 | disposition home or self-care (01) ==
LOC: JD.ED 15:36
DX: S46.911A Strain of unspecified muscle, fascia and tendon at shoulder and upper arm level, right arm, initial encounter (principal); Z88.1 Allergy status to other antibiotic agents; Z88.2 Allergy status to sulfonamides; Z88.8 Allergy status to other drugs, medicaments and biological substances; Z88.5 Allergy status to narcotic agent; F17.210 Nicotine dependence, cigarettes, uncomplicated; W00.0XXA Fall on same level due to ice and snow, initial encounter
CPT/HCPCS: 73030-26-RT; 73030-RT; 99283; 99284

== ENCOUNTER 2017-04-19 21:01 | Emergency (ER) | payer MEDICAID ==
[2017-04-19 21:18] VITALS: BP 128/84
--- NOTE | 2017-04-19 21:57 | EDM.PDOC ---
ED HPI GENERAL MEDICAL PROBLEM - General Chief Complaint: Back Pain or Injury Stated Complaint: BACK & HIP PAIN Time Seen by Provider: 04/19/17 21:15 Source of Information: Reports: Patient History Limitations: Reports: No Limitations - History of Present Illness INITIAL COMMENTS - FREE TEXT/NARRATIVE: This is a 42-year-old male. Apparently today he was changing the shocks on his Buick and as he was lying under the car and twisting his body to get to that bolt on the very top of the shock disorder he twisted and hurt his lower back. He's been taking some Tylenol and he took some Robaxin but it didn' t seem to help so he comes to the ER. He was able to walk into the ER without difficulty and he drove himself to the ER. He states the Robaxin is normally what he takes for muscle relaxers but it wasn't helping. I indicated to him that this is not something we would treat with narcotics and I can't give him a stronger muscle relaxer. He states he can't take Flexeril because it makes him too sleepy. I will then provide a different muscle relaxer that worked better than Robaxin. He wanted no findings give him some tramadol and I told him this is not something we would give for this type of back strain. Treatments BILLING AND INSURANCE COORDINATOR: Reports: Acetaminophen Other Treatments BILLING AND INSURANCE COORDINATOR: 3000mg at 1500 Lower Back Pain Score (Numeric/FACES): 9 - Related Data Allergies Allergy/AdvReac Type Severity Reaction Status Date / Time amoxicillin Allergy Anaphylactic Verified 04/19/17 21:14 Shock aspirin Allergy Anaphylactic Verified 04/19/17 21:14 Shock ibuprofen [From Motrin] Allergy Hives Verified 04/19/17 21:14 ketorolac [From Toradol] Allergy Anaphylactic Verified 04/19/17 21:14 Shock naproxen [From Naprosyn] Allergy Anaphylactic Verified 04/19/17 21:14 Shock Sulfa (Sulfonamide Allergy Anaphylactic Verified 04/19/17 21:14 Antibiotics) Shock Home Meds: Home Meds Gabapentin [Neurontin] 1,200 mg PO TID 10/16/16 [History] Orphenadrine [Norflex] 100 mg PO BID PRN #12 tab.er 04/19/17 [Rx] Past Medical History - Past Health History Medical/Surgical History: Denies Medical/Surgical History Respiratory History: Reports: Other (See Below) Other Respiratory History: seasonal allergies. respiratory arrest after amoxicillin Musculoskeletal History: Reports: Back Pain, Chronic, Other (See Below) Other Musculoskeletal History: has rotator cuff injury. Has ankylosing spondylitis. 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 - Past Surgical History Musculoskeletal Surgical History: Reports: Other (See Below) Other Musculoskeletal Surgeries/Procedures:: pt states that his mid back is fused Social & Family History - Family History Family Medical History: Noncontributory - Tobacco Use Smoking Status *Q: Current Every Day Smoker Years of Tobacco use: 7 Packs/Tins Daily: 1 Used Tobacco, but Quit: No Second Hand Smoke Exposure: No - Caffeine Use Caffeine Use: Reports: Soda, Tea - Recreational Drug Use Recreational Drug Use: No - Living Situation & Occupation Living situation: Reports: Occupation: Employed ED ROS GENERAL - Review of Systems Review Of Systems: See Below Constitutional: Denies: Fever, Chills HEENT: Reports: No Symptoms Respiratory: Reports: No Symptoms Cardiovascular: Reports: No Symptoms Endocrine: Reports: No Symptoms GI/Abdominal: Reports: No Symptoms : Reports: No Symptoms Musculoskeletal: Reports: Other (On exam back and musculoskeletal pain) Skin: Reports: No Symptoms Neurological: Reports: No Symptoms Psychiatric: Reports: No Symptoms Hematologic/Lymphatic: Reports: No Symptoms ED EXAM,LOWER BACK PAIN/INJURY - Physical Exam Exam: See Below Exam Limited By: No Limitations General Appearance: Alert, WD/WN, No Apparent Distress Eye Exam: Bilateral Eye: Normal Inspection Ears: Normal External Exam Nose: Normal Inspection Throat/Mouth: Normal Inspection, Normal Lips, Normal Voice, No Airway Compromise Head: Normocephalic Neck: Supple Respiratory/Chest: No Respiratory Distress Back Exam: Normal Inspection, Other (Palpation of the lumbar spine reveals excessive apprehension and tenderness in the lower lumbar area all the way up into the mid thoracic region, this is all paraspinal muscle tissue not midline spine pain, he denies any pain going down his legs at this time) Extremities: Normal Range of Motion Neurological: Alert, Normal Mood/Affect, Oriented x 3 Psychiatric: Normal Affect, Normal Mood Skin Exam: Warm, Dry Course - Vital Signs Last Recorded V/S: Last Vital Signs Temp 98.2 F 04/19/17 21:14 Pulse 85 04/19/17 21:14 Resp 16 04/19/17 21:14 BP 128/84 04/19/17 21:14 Pulse Ox 96 04/19/17 21:14 - Re-Assessments/Exams Free Text/Narrative Re-Assessment/Exam: 04/19/17 21:55 Patient should be noted that this patient is under [facility]. He also on the [place] drug monitoring site over the last year has gotten 25 prescriptions from 12 prescribers and 9 pharmacies. I do not feel the need to provide narcotics for him with his presentation. I will however provide a muscle relaxer. He did ask specifically for tramadol and I refused since it also is addictive despite its reputation. 04/19/17 21:59 I asked the patient on multiple occasions whether he had one some x-rays to his lower back and he was not leaning to say no to yes and stated wherever I thought. I indicated that he was able to walk in here so I did not think that a bone was the issue and since everywhere he was tender was related to muscles and ligaments I did not feel he needed to have an x-ray. I did indicate that it was his decision however and if he wanted an x-ray I would do it. He declined at that time. Departure - Departure Time of Disposition: 21:56 Disposition: Home, Self-Care 01 Condition: Fair Clinical Impression: Muscle spasm of back Acute lumbar myofascial strain Qualifiers: Encounter type: initial encounter Qualified Code(s): S39.012A - Strain of muscle, fascia and tendon of lower back, initial encounter - Discharge Information Prescriptions: Orphenadrine [Norflex] 100 mg PO BID PRN #12 tab.er PRN Reason: Spasms Referrals: PCP,Not In Area [Primary Care Provider] - Additional Instructions: Use ice or heat to your back for the soreness, stay away from working on your car since it was the source of your injury at least until you are well, take Tylenol and use the Norflex as needed for muscle spasms, follow-up with your family doctor on Friday for recheck, return to the ER for emergencies
== END 2017-04-19 22:00 | disposition home or self-care (01) ==
LOC: JD.ED 21:01
DX: S39.012A Strain of muscle, fascia and tendon of lower back, initial encounter (principal); F17.210 Nicotine dependence, cigarettes, uncomplicated; Z88.6 Allergy status to analgesic agent; Z88.1 Allergy status to other antibiotic agents; Z88.2 Allergy status to sulfonamides; X50.9XXA Other and unspecified overexertion or strenuous movements or postures, initial encounter
CPT/HCPCS: 99283

== ENCOUNTER 2017-05-10 17:28 | Emergency (ER) | payer MEDICAID ==
[2017-05-10 17:43] VITALS: BP 128/98
[2017-05-10] MEDS ORDERED: HYDROmorphone 1 MG/ML Syringe IM ONE (18:11)
[2017-05-10] MEDS ORDERED: Promethazine 25 MG/ML SDV IM ONE (18:11)
--- NOTE | 2017-05-10 18:17 | EDM.PDOC ---
ED HPI GENERAL MEDICAL PROBLEM - General Chief Complaint: Skin Complaint Stated Complaint: RASH Time Seen by Provider: 05/10/17 18:10 Source of Information: Reports: Patient History Limitations: Reports: No Limitations - History of Present Illness INITIAL COMMENTS - FREE TEXT/NARRATIVE: 42-year-old male presents to the ED with complaints of severe right buttock and posterior thigh pain. States he strained his lower back 2 days ago and pain is increased gradually in his lower back and down his right buttock to the right knee. pain not radial way down to his foot. Patient has a chronic rash on his right buttock for which he states he is taking griseofulvin this and on 4 occasions with good success in clearing up the rash. However every time his main his liver quite sick. This was being done by physician in [place]. Reports he said previous attempts at injection of facet joints in his lower back which made him much worse rather than better. Apparently he is not a candidate for surgery. Is concerned now that his rash may have involved his muscle tissue of his thigh. Had to leave work early today due to the severity of the pain. States he can get on and off the toilet is just very painful. Bowel and bladder function is still working normally. Onset Date: 05/08/17 Duration: Day(s): (Gradually started 2 days ago after he felt he strained his lower back by twisting too much.) Location: Reports: Lower Extremity, Right (Pain lower back radiating down the posterior buttock and posterior thigh to the knee.) Back Pain Score (Numeric/FACES): 10 - Related Data Allergies Allergy/AdvReac Type Severity Reaction Status Date / Time amoxicillin Allergy Anaphylactic Verified 04/19/17 21:14 Shock aspirin Allergy Anaphylactic Verified 04/19/17 21:14 Shock ibuprofen [From Motrin] Allergy Hives Verified 04/19/17 21:14 ketorolac [From Toradol] Allergy Anaphylactic Verified 04/19/17 21:14 Shock naproxen [From Naprosyn] Allergy Anaphylactic Verified 04/19/17 21:14 Shock Sulfa (Sulfonamide Allergy Anaphylactic Verified 04/19/17 21:14 Antibiotics) Shock Home Meds: Home Meds Gabapentin [Neurontin] 1,200 mg PO TID 10/16/16 [History] Orphenadrine [Norflex] 100 mg PO BID PRN #12 tab.er 04/19/17 [Rx] Doxycycline [Vibramycin] 100 mg PO DAILY #24 tab 05/10/17 [Rx] Omeprazole 40 mg PO BID 05/10/17 [History] oxyCODONE HCl/Acetaminophen [Percocet 10-325 mg Tablet] 1 each PO Q4H #30 tablet 05/10/17 [Rx] Past Medical History - Past Health History Medical/Surgical History: Denies Medical/Surgical History Respiratory History: Reports: Other (See Below) Other Respiratory History: seasonal allergies. respiratory arrest after amoxicillin Musculoskeletal History: Reports: Back Pain, Chronic, Other (See Below) Other Musculoskeletal History: has rotator cuff injury. Has ankylosing spondylitis. 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 - Past Surgical History Musculoskeletal Surgical History: Reports: Other (See Below) Other Musculoskeletal Surgeries/Procedures:: pt states that his mid back is fused Social & Family History - Family History Family Medical History: Noncontributory - Tobacco Use Smoking Status *Q: Never Smoker Years of Tobacco use: 7 Packs/Tins Daily: 1 Used Tobacco, but Quit: No Second Hand Smoke Exposure: No - Caffeine Use Caffeine Use: Reports: None - Recreational Drug Use Recreational Drug Use: No - Living Situation & Occupation Living situation: Reports: Occupation: Employed ED ROS GENERAL - Review of Systems Review Of Systems: See Below Constitutional: Denies: Fever, Chills, Malaise, Weakness, Fatigue, Decreased Appetite, Weight Loss HEENT: Reports: No Symptoms Respiratory: Reports: No Symptoms Cardiovascular: Reports: No Symptoms GI/Abdominal: Reports: No Symptoms : Reports: No Symptoms Musculoskeletal: Reports: Back Pain (Severe bilateral low back pain.) Skin: Reports: Rash (Chronic rash right buttock) Neurological: Reports: Numbness, Tingling, Other Psychiatric: Reports: No Symptoms Hematologic/Lymphatic: Reports: No Symptoms ED EXAM, SKIN/RASH Exam: See Below Exam Limited By: No Limitations General Appearance: Alert, WD/WN, Moderate Distress (Very dramatic.) Peripheral Pulses: 2+: Posterior Tibial (L), Posterior Tibial (R), Dorsalis Pedis (L), Dorsalis Pedis (R) Back Exam: Muscle Spasm ( He would not allow straight leg raising due to severe pain. mild bilateral lumbar spine. ), Paraspinal Tenderness (Severe L3 or L4 L4- L5 and L5-S1 facet joints bilaterally), Other (Patient has severe pain to palpation of the lower lumbar spine bilaterally particularly from L3-L4 or L4- L5 and L5-S1 facet joints. He can barely allow touching his right buttock which I find to be overly dramatic. Appears that he does have a component of sacroiliitis but I couldn't push all lap hard. Certain that his current pain was related to development of shingles but there are no shingles like rash in the area. He has a chronic folliculitis of the right buttock with extensive scratching and excoriations.) Extremities: Normal Inspection, Normal Range of Motion, Non-Tender, No Pedal Edema Neurological: Alert, Oriented, CN II-XII Intact, Normal Cognition, Normal Gait Psychiatric: Anxious, Other Skin: Warm, Dry, Rash (Patient has a folliculitis which is of great chronicity right buttock. It's in the distribution of his under shorts and is due to friction.), Other Location, Skin: Other (Right buttock) Characteristics: Maculopapular. No: Confluent, Patchy, Linear, Vesicular, Bullous, Urticarial, Petechial Associated features: No: Tenderness, Swelling, Induration, Scaling, Inflammation , Crusting, Weeping Course - Vital Signs Last Recorded V/S: Last Vital Signs Temp 37.4 C 05/10/17 17:41 Pulse 92 05/10/17 17:41 Resp 18 05/10/17 17:41 BP 128/98 H 05/10/17 17:41 Pulse Ox 97 05/10/17 17:41 - Orders/Labs/Meds Meds: Medications Discontinued Medications Generic Name Dose Route Start Last Admin Trade Name Freq PRN Reason Stop Dose Admin Hydromorphone HCl 1.5 mg 05/10/17 18:11 05/10/17 18:20 Dilaudid IM 05/10/17 18:12 Not Given ONETIME ONE Hydromorphone HCl 1.5 mg 05/10/17 18:19 05/10/17 18:28 Dilaudid IM 05/10/17 18:20 1.5 mg ONETIME ONE Administration Promethazine HCl 25 mg 05/10/17 18:11 05/10/17 18:29 Phenergan IM 05/10/17 18:12 25 mg ONETIME ONE Administration - Radiology Interpretation Free Text/Narrative:: 42-year-old male presents to the ED with acute exacerbation of low back pain which she has chronically. Currently is complaining of severe pain rating down his right buttock cheek to the posterior aspect of his right thigh and knee. There is very tender to touch along the distribution of the sciatic nerve which I found to be somewhat overly dramatic on examination. Has a chronic folliculitis rash on his right buttock which she thought might be the cause of his current pain I now involving his muscles. Reassured him this was not the case. This the infection is confined to the scaliness folliculitis. Pain is from low back pain and likely sciatica although I was unable to prove this on examination due to limited cooperation by the patient. Patient is allergic to all NSAIDs. Has apparently developed anaphylactic shock from some of them in the past. He will use Flexeril 10 mg every 8 hours when necessary for muscle relaxation Percocet 10/3/25 milligram tablet 1 tablet every 4-6 hours necessary for pain relief. In the ED he was given a injection of Dilaudid 1.5 mg with Phenergan 25 mg IM for acute pain relief. He is 265 pounds. He will follow-up with his personal care physician early next week. Note given to excuse him from the work place for the next 3-5 days. Patient on doxycycline 100 mg twice daily for the next 12 days for the folliculitis rash in his right buttock. Departure - Departure Time of Disposition: 18:35 Disposition: Home, Self-Care 01 Condition: Fair Clinical Impression: Lumbar back pain with radiculopathy affecting right lower extremity - Discharge Information Prescriptions: Doxycycline [Vibramycin] 100 mg PO DAILY #24 tab oxyCODONE HCl/Acetaminophen [Percocet 10-325 mg Tablet] 1 each PO Q4H #30 tablet Instructions: Sciatica, [id number], Sciatica Referrals: PCP,None [Primary Care Provider] - Forms: ED Department Discharge, ED Return to Work/School Form Additional Instructions: Evaluation the emergency room today in regards to acute onset of severe low back pain over the last 36-48 hours. Pain is now referred down to the right buttock to the posterior aspect of your thigh to the knee. This is characteristic of inflammation of the sciatic nerve. There appears to be a component of inflammation of the underlying SI joint or sacroiliac joint. Pelvis joins onto your backbone. By history you have had multiple pauses with your low back with acute exacerbation over the last day or so. The rash on the right buttock cheek is folliculitis which means inflammation of the hair follicles of the skin. Part of this is due to friction from under shorts. This is likely to a chronic inflammatory infection in the skin. Suggest treatment with doxycycline 100 mg twice daily which is used for acne and folliculitis that penetrates the skin quite well. Suggest use twice daily for the next 12 days to help clear up this infection. In 10 you've Flexeril as needed for muscles spasm and relief.
[2017-05-10] MEDS ORDERED: HYDROmorphone 0.5 MG/0.5 ML SYRINGE IM ONE (18:19)
== END 2017-05-10 18:40 | disposition home or self-care (01) ==
LOC: JD.ED 17:28
DX: M54.16 Radiculopathy, lumbar region (principal); Z88.6 Allergy status to analgesic agent; Z88.5 Allergy status to narcotic agent; Z88.2 Allergy status to sulfonamides; Z88.8 Allergy status to other drugs, medicaments and biological substances; Z79.899 Other long term (current) drug therapy
CPT/HCPCS: 96372; 99283; J1170; J2550

== ENCOUNTER 2017-05-14 16:39 | Emergency (ER) | payer MEDICAID ==
[2017-05-14 16:58] VITALS: BP 149/94
--- NOTE | 2017-05-14 17:45 | EDM.PDOC ---
ED HPI GENERAL MEDICAL PROBLEM - General Chief Complaint: Back Pain or Injury Stated Complaint: BACK AND LEG PAIN Time Seen by Provider: 05/14/17 17:30 Source of Information: Reports: Patient, Old Records History Limitations: Reports: No Limitations - History of Present Illness INITIAL COMMENTS - FREE TEXT/NARRATIVE: 42-year-old male presents for evaluation and treatment of sciatica. Patient been seen in the ER on several occasions for low back pain. He states that he was seen on Friday in the ER and diagnosed with sciatica. He was put on Percocet for the pain. He states he is also started on doxycycline for an infection on his leg. Patient reports he was able to work on Friday and Friday without any problems as he was on the Percocet. States he is now out of Percocet and cannot work due to the pain. Reports the rash to the leg is improving on the doxycycline. He still taking this as prescribed. He states that he did take steroids as well as Benadryl for hives that he developed yesterday. Last dose of steroids was yesterday, this has Since resolved. He is in the ER today complaining of severe low back pain radiating down his right leg. He states he is unable to stand or work due to the pain. Denies any fevers, chills, nausea, vomiting, urinary incontinence or stool incontinence. States he tried to go to a chiropractor today but was told that they were out due to flu and he could not be seen. Review the patient's record show that he has had an MRI earlier this month. No abnormalities were found on and MRIs lumbar spine. He has had surgery to his thoracic spine. Lower Back Pain Score (Numeric/FACES): 10 - Related Data Allergies Allergy/AdvReac Type Severity Reaction Status Date / Time amoxicillin Allergy Anaphylactic Verified 05/14/17 16:58 Shock aspirin Allergy Anaphylactic Verified 05/14/17 16:58 Shock ibuprofen [From Motrin] Allergy Hives Verified 05/14/17 16:58 ketorolac [From Toradol] Allergy Anaphylactic Verified 05/14/17 16:58 Shock naproxen [From Naprosyn] Allergy Anaphylactic Verified 05/14/17 16:58 Shock Sulfa (Sulfonamide Allergy Anaphylactic Verified 05/14/17 16:58 Antibiotics) Shock Home Meds: Home Meds Gabapentin [Neurontin] 1,200 mg PO TID 10/16/16 [History] Orphenadrine [Norflex] 100 mg PO BID PRN #12 tab.er 04/19/17 [Rx] Omeprazole 40 mg PO BID 05/10/17 [History] oxyCODONE HCl/Acetaminophen [Percocet 10-325 mg Tablet] 1 each PO Q4H #30 tablet 05/10/17 [Rx] Prednisone [IJD: predniSONE] 40 mg PO WITHBREAKFAST #10 tab 05/14/17 [Rx] Past Medical History - Past Health History Medical/Surgical History: Denies Medical/Surgical History Respiratory History: Reports: Other (See Below) Other Respiratory History: seasonal allergies. respiratory arrest after amoxicillin Musculoskeletal History: Reports: Back Pain, Chronic, Other (See Below) Other Musculoskeletal History: has rotator cuff injury. Has ankylosing spondylitis. 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 - Past Surgical History Musculoskeletal Surgical History: Reports: Other (See Below) Other Musculoskeletal Surgeries/Procedures:: pt states that his mid back is fused Social & Family History - Family History Family Medical History: Noncontributory - Tobacco Use Smoking Status *Q: Current Every Day Smoker Years of Tobacco use: 20 Packs/Tins Daily: 0.5 Used Tobacco, but Quit: No Second Hand Smoke Exposure: No - Caffeine Use Caffeine Use: Reports: None - Recreational Drug Use Recreational Drug Use: No - Living Situation & Occupation Living situation: Reports: Occupation: Employed ED ROS GENERAL - Review of Systems Review Of Systems: See Below Constitutional: Denies: Fever, Chills GI/Abdominal: Denies: Nausea, Vomiting Musculoskeletal: Reports: Back Pain (lower back), Leg Pain (right leg) Skin: Reports: Rash (right lateral thigh) Neurological: Reports: Difficulty Walking. Denies: Numbness, Tingling ED EXAM,LOWER BACK PAIN/INJURY - Physical Exam Exam: See Below Exam Limited By: No Limitations General Appearance: Alert, WD/WN, Moderate Distress Respiratory/Chest: No Respiratory Distress, Lungs Clear, Normal Breath Sounds Cardiovascular: Normal Peripheral Pulses, Regular Rate, Rhythm, No Murmur Back Exam: Normal Inspection, Vertebral Tenderness (significant tenderness to the lumbar spine with light palapation, patient seems to exacerbate symptoms) Extremities: Normal Inspection, Other (pain to light palpation to the right ilica crest and right proximal femur) Neurological: Alert, Normal Dorsiflexion, Normal Plantar Flexion, Abnormal Gait (limping gait) Psychiatric: Normal Affect, Normal Mood Skin Exam: Warm, Dry, Rash (right lateral thigh, folliculitis) Course - Vital Signs Last Recorded V/S: Last Vital Signs Temp 37.0 C 05/14/17 16:55 Pulse 86 05/14/17 16:55 Resp 16 05/14/17 16:55 BP 149/94 H 05/14/17 16:55 Pulse Ox 98 05/14/17 16:55 - Orders/Labs/Meds Meds: Medications Discontinued Medications Generic Name Dose Route Start Last Admin Trade Name Cristopher PRN Reason Stop Dose Admin Methylprednisolone Sodium Succinate 125 mg 05/14/17 17:42 05/14/17 17:59 Solu-Medrol IM 05/14/17 17:43 125 mg ONETIME ONE Administration - Re-Assessments/Exams Free Text/Narrative Re-Assessment/Exam: 05/14/17 17:40 Patient was searched on the [place] prescription drug registry. He has received 30 prescription for 16 different providers within the last year for controlled substances. The search was amended to include [place] and [place]. Most recently he received Percocet 10-325 #30 on 05/10/17. I do not feel that narcotics are warranted. He has an MRI earlier this what month which did not show any abnormalities. If he does indeed have sciatica we could treat this with steroids to help reduce the inflammation. He has multiple allergies; he can only take Tylenol for pain. I will give him a shot of steroids here and have him start short course of prednisone. Discharge instructions document it. 05/14/17 18:41 After I discharge the patient's the nurse went in to go over his discharge instructions and he demanded to see me again. I presented and he was complaining of pain. I informed him that his back pain is a chronic problem and we are unable to treat chronic pain here in the ER. If he needs pain management he should see a pain specialist. I informed him I am unable to refill his narcotics that he was given on Friday. I informed him that the Solu-Medrol and steroids is appropriate treatment for sciatica. He is also encouraged use ice, heat and Tylenol. He was very upset by this and left the ER. Departure - Departure Time of Disposition: 17:42 Disposition: Home, Self-Care 01 Condition: Fair Clinical Impression: Back pain, Drug-seeking behavior - Discharge Information Prescriptions: Prednisone [IJD: predniSONE] 40 mg PO WITHBREAKFAST #10 tab Instructions: Back Pain, Adult Referrals: PCP,None [Primary Care Provider] - Davi Paniagua [Physician] - Forms: ED Department Discharge Additional Instructions: Take the prednisone as prescribed. Two tabs, 40 mg, by mouth for 5 days. Start this prescription tomorrow as you were given steroid in the ER tonight. [id number] Tylenol as needed for additional pain relief. Follow-up with a primary care provider to establish care and for further management of your pain. Unfortunately, we are unable refill narcotics here in the ER. If you need further pain management I recommend you see a pain specialist and establish with a primary care provider. Recommend Dr. Da Silva or Dr. Burroughs at the [facility]. Call [phone] to schedule with either one of these providers. Please return to the ER your symptoms change or worsen.
[2017-05-14] MEDS: methylPREDNISolone Sodium Succinate 125 MG/2 ML SDV IM ONE (17:59)
== END 2017-05-14 18:30 | disposition home or self-care (01) ==
LOC: JD.ED 16:39
DX: M54.41 Lumbago with sciatica, right side (principal); F17.210 Nicotine dependence, cigarettes, uncomplicated; Z79.899 Other long term (current) drug therapy; Z88.1 Allergy status to other antibiotic agents; Z88.6 Allergy status to analgesic agent; Z76.5 Malingerer [conscious simulation]
CPT/HCPCS: 96372; 99283; J2930

== ENCOUNTER 2018-03-22 00:53 | Emergency (ER) | payer MEDICAID ==
[2018-03-22 01:02] VITALS: BP 136/87
--- NOTE | 2018-03-22 01:22 | EDM.PDOC ---
ED HPI GENERAL MEDICAL PROBLEM - General Chief Complaint: Back Pain or Injury Stated Complaint: LOWER BACK PAIN Time Seen by Provider: 03/22/18 01:05 Source of Information: Reports: Patient, Old Records - History of Present Illness INITIAL COMMENTS - FREE TEXT/NARRATIVE: The patient states that he is on Dilaudid 4 mg for chronic low back pain. He states that he drove his to [place] last week so that she could have a Hematology appointment, and that he forgot his Dilaudid pills at the hotel. He states that he called the hotel, and was told that they could not mail prescription medicines. He states he plans to return to [place] to retrieve the pills this coming 03/24/2018, and that he cannot return earlier, or else he will lose his job. He is requesting a refill of Dilaudid to last him until he can retrieve his pills. The patient states that his prescribing physician is Dr. Wall, and that his most recent prescription for Dilaudid was on 03/10 or 03/11/2018. I asked him why he didn't call the clinic on Friday when he realized that he forgot his pills, to see if they could help him out, and he stated that he did, but that he was told that they could not refill his prescription, and that he would need to return to [place] to retrieve his pills. The patient states that his low back pain is due to spinal stenosis, and while it is true that he has anterior fusion within multiple vertebral levels within the lower thoracic spine, as seen on a thoracic spine x-ray on 12/07/2016, a MRI performed on 04/29/2017 is read as: 1. Stable anterior fusion between T12 and L1. 2. Other portions of the MRI lumbar spine study appear almost normal. I have reviewed prior medical records from this patient and noted that he has been to this ED on numerous occasions for complaints of low back pain. Most recently, on 05/14/2017, the patient became angry and left the ED without waiting for discharge instructions after he was refused opioids. Review of the [place] PMPi finds that the patient has 109 prescriptions for control substances, almost all opioids, some for gabapentin, by 56 prescribers, filled at 36 different pharmacies since March 2015. His most recent prescription is for hydromorphone 4 mg, 120 tablets = 30 day supply, filled on 03/09/2018, prescribed by Dr. Owens. Back Pain Score (Numeric/FACES): 10 - Related Data Allergies Allergy/AdvReac Type Severity Reaction Status Date / Time amoxicillin Allergy Anaphylactic Verified 03/22/18 00:58 Shock aspirin Allergy Anaphylactic Verified 03/22/18 00:58 Shock ibuprofen [From Motrin] Allergy Hives Verified 03/22/18 00:58 ketorolac [From Toradol] Allergy Anaphylactic Verified 03/22/18 00:58 Shock naproxen [From Naprosyn] Allergy Anaphylactic Verified 03/22/18 00:58 Shock Sulfa (Sulfonamide Allergy Anaphylactic Verified 03/22/18 00:58 Antibiotics) Shock Home Meds: Home Meds Gabapentin [Neurontin] 1,200 mg PO TID 10/16/16 [History] HYDROmorphone [Dilaudid] 4 mg PO QID 03/22/18 [History] Past Medical History HEENT History: Reports: Allergic Rhinitis, Impaired Vision Other HEENT History: Wears glasses Musculoskeletal History: Reports: Back Pain, Chronic Endocrine/Metabolic History: Reports: Obesity/BMI 30+ Social & Family History - Family History Family Medical History: Noncontributory - Tobacco Use Smoking Status *Q: Current Every Day Smoker Years of Tobacco use: 10 Packs/Tins Daily: 0.7 - Caffeine Use Caffeine Use: Reports: None - Recreational Drug Use Recreational Drug Use: No - Living Situation & Occupation Living situation: Reports: Occupation: Employed ED ROS GENERAL - Review of Systems Review Of Systems: ROS reveals no pertinent complaints other than HPI. ED EXAM,LOWER BACK PAIN/INJURY - Physical Exam Exam: See Below Exam Limited By: No Limitations General Appearance: Alert, WD/WN, No Apparent Distress Back Exam: Normal Inspection, Full Range of Motion, NT Course - Vital Signs Last Recorded V/S: Last Vital Signs Temp 37.0 C 03/22/18 00:59 Pulse 103 H 03/22/18 00:59 Resp 18 03/22/18 00:59 BP 136/87 03/22/18 00:59 Pulse Ox 97 03/22/18 00:59 - Re-Assessments/Exams Free Text/Narrative Re-Assessment/Exam: 03/22/18 01:14 The patient is only here for a refill of his opioid pain medication, which I explained I cannot do. I offered some other treatment modality, such as a steroid injection or muscle relaxant, but the patient stated that prednisone doesn't do anything for him. He wants only opioids, nothing else. The patient left the ED without waiting for discharge instructions. Departure - Departure Time of Disposition: 01:15 Disposition: [facility] 07 Condition: Good Clinical Impression: Drug-seeking behavior - Discharge Information *PRESCRIPTION DRUG MONITORING PROGRAM REVIEWED*: Yes *COPY OF PRESCRIPTION DRUG MONITORING REPORT IN PATIENT LYNN: Yes Referrals: Bethel Ceballos MD [Primary Care Provider] - Forms: ED Department Discharge
== END 2018-03-22 01:15 | disposition left against medical advice (07) ==
LOC: JD.ED 00:53
DX: Z76.5 Malingerer [conscious simulation] (principal); F17.210 Nicotine dependence, cigarettes, uncomplicated; Z88.6 Allergy status to analgesic agent; Z88.1 Allergy status to other antibiotic agents; Z88.2 Allergy status to sulfonamides
CPT/HCPCS: 99283

== ENCOUNTER 2018-03-23 14:49 | Emergency (ER) | payer MEDICAID ==
--- NOTE | 2018-03-23 14:57 | EDM.PDOC ---
ED HPI GENERAL MEDICAL PROBLEM - General Chief Complaint: Back Pain or Injury Stated Complaint: BACK PAIN Time Seen by Provider: 03/23/18 14:57 - History of Present Illness INITIAL COMMENTS - FREE TEXT/NARRATIVE: 43-year-old male presents emergency room with back pain. patient was seen here early yesterday morning stating that he left his Dilaudid in [place]. Today he told nurses that he has Dilaudid was accident report down the sink by his daughter and he is filed a police report. When I went in to see the patient he said he twisted his back and felt a pop he did this while picking stuff up. He denies any recent falls or other significant trauma to his back just this twisting episode when he was picking step up off the floor. He denies any abdominal pain he's had no burning or frequency with urination denies recent illnesses. He states that the pain goes down the back of his thigh on the right side stops before the level of the knee. It is more of an achy pain not a electrical shooting pain. He denies loss of bowel or bladder control. Lower Back Pain Score (Numeric/FACES): 9 - Related Data Allergies Allergy/AdvReac Type Severity Reaction Status Date / Time amoxicillin Allergy Anaphylactic Verified 03/23/18 15:00 Shock aspirin Allergy Anaphylactic Verified 03/23/18 15:00 Shock ibuprofen [From Motrin] Allergy Hives Verified 03/23/18 15:00 ketorolac [From Toradol] Allergy Anaphylactic Verified 03/23/18 15:00 Shock naproxen [From Naprosyn] Allergy Anaphylactic Verified 03/23/18 15:00 Shock Sulfa (Sulfonamide Allergy Anaphylactic Verified 03/23/18 15:00 Antibiotics) Shock Home Meds: Home Meds Gabapentin [Neurontin] 1,200 mg PO TID 10/16/16 [History] HYDROmorphone [Dilaudid] 4 mg PO QID 03/22/18 [History] Past Medical History - Past Health History Medical/Surgical History: Denies Medical/Surgical History HEENT History: Reports: Allergic Rhinitis, Impaired Vision Other HEENT History: Wears glasses Respiratory History: Reports: Other (See Below) Other Respiratory History: seasonal allergies. respiratory arrest after amoxicillin Musculoskeletal History: Reports: Back Pain, Chronic Other Musculoskeletal History: has rotator cuff injury. Has ankylosing spondylitis. 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 Endocrine/Metabolic History: Reports: Obesity/BMI 30+ - Past Surgical History Musculoskeletal Surgical History: Reports: Other (See Below) Other Musculoskeletal Surgeries/Procedures:: pt states that his mid back is fused Social & Family History - Family History Family Medical History: Noncontributory - Caffeine Use Caffeine Use: Reports: None - Living Situation & Occupation Living situation: Reports: Occupation: Employed ED ROS GENERAL - Review of Systems Review Of Systems: See Below Constitutional: Reports: No Symptoms Respiratory: Reports: No Symptoms Cardiovascular: Reports: No Symptoms GI/Abdominal: Reports: No Symptoms. Denies: Constipation, Diarrhea, Nausea, Vomiting : Reports: No Symptoms, Dysuria ED EXAM,LOWER BACK PAIN/INJURY - Physical Exam Exam: See Below Exam Limited By: No Limitations General Appearance: Alert, No Apparent Distress Respiratory/Chest: No Respiratory Distress, Lungs Clear, Normal Breath Sounds Cardiovascular: Regular Rate, Rhythm, No Edema, No Murmur GI/Abdominal: Normal Bowel Sounds, Soft, Non-Tender, No Distention, Other ( Somewhat obese) Back Exam: Normal Inspection, Vertebral Tenderness (He has some upper lumbar discomfort with pain no paraspinous muscle tenderness) Course - Vital Signs Last Recorded V/S: Last Vital Signs Temp 37.1 C 03/23/18 14:56 Pulse 94 03/23/18 14:56 Resp 20 03/23/18 14:56 BP 107/73 03/23/18 14:56 Pulse Ox 96 03/23/18 14:56 - Re-Assessments/Exams Free Text/Narrative Re-Assessment/Exam: 03/23/18 15:30 Talk to the patient about his oral Dilaudid and told him that he should be on a pain contract and he denies he is he can't get in with the prescribing physician until the 14th of this month. I informed him I do not write for oral Dilaudid and do not participate in chronic pain management here in the emergency room he then stated that he's been taking Tylenol and he's taken up to 5000 mg already today I've informed him that the maximum recommended dose is 4000 mg a day. We agreed on checking some x-rays before I can get them ordered he left the department refusing to sign an AMA form Departure - Departure Time of Disposition: 15:32 Disposition: Against Medical Advice 07 Clinical Impression: Drug-seeking behavior - Discharge Information Referrals: PCP,None [Primary Care Provider] - Forms: ED Department Discharge
[2018-03-23 14:59] VITALS: BP 107/73
== END 2018-03-23 15:15 | disposition left against medical advice (07) ==
LOC: JD.ED 14:49
DX: Z76.5 Malingerer [conscious simulation] (principal); Z88.1 Allergy status to other antibiotic agents; Z88.6 Allergy status to analgesic agent; Z88.5 Allergy status to narcotic agent; Z88.2 Allergy status to sulfonamides; Z79.899 Other long term (current) drug therapy
CPT/HCPCS: 99281; 99283